=== PATIENT | male | born 1975 | race African-American/Black ===

== ENCOUNTER 2018-10-18 10:06 | Inpatient (IN) | payer OTHER ==
[~2018-10-18] VITALS: Ht 180.3 cm; Wt 83.5 kg
[2018-10-18] MEDS ORDERED: LORAZEPAM INJ 2 MG/ML VIAL ONE (10:17)
--- NOTE | 2018-10-18 10:20 | NUR ---
SARAHI FROM SNF, REPORTED SEIZURE. ON TRACHE, COOL AEROSOL. NO DISTRESS NOTED. PLACED ON THE MONITOR, SEIZURE PRECAUTION OBSERVED. WILL MONITOR.
[2018-10-18] MEDS ORDERED: LORAZEPAM INJ 2 MG/ML VIAL IV ONE (10:30)
--- NOTE | 2018-10-18 10:43 | NUR ---
RT PATIENT REC'D IN ER VIA PARAMEDICS TRACHED WITH A PORTEX 9 CUFFLESS ON 40% FIO2 VIA TRACH MASK YVETTE WELL. PATIENT HAVING ACTIVE SEIZERS. PER MD MORFIN PATIENT PLACED ON [facility] VENT WITH SETTINGS AC 12, VT 500, 40% FIO2 AND 5 PEEP TOLERATED WELL. VENT ALARMS CHECKED + AUDIBLE. AMBU BAG AT [facility]. Addendum: 10/18/18 at 1044 by REMA SIMEON RT Amended: Links added.
[2018-10-18] MEDS ORDERED: LEVETIRACETAM (500MG) 500 MG in IV NS 0.9% 100 ML IV ONE (11:00)
[2018-10-18 11:28] LABS: BASOPHILS % (AUTO) 0.7 % (0.0-2.0); EOSINOPHILS % (AUTO) 3.2 % (0.0-6.0); HEMATOCRIT 36 % (39-51); HEMOGLOBIN 12.1 g/dL (13.5-17.5); LYMPHOCYTES # (AUTO) 2.3 /CMM (0.8-4.8); MEAN CORPUSCULAR HGB CONC 34 g/dl (31.0-36.0); MEAN CORPUSCULAR VOLUME 88 fL (80-96); MONOCYTES # (AUTO) 0.4 /CMM (0.1-1.30); MONOCYTES % (AUTO) 6.2 % (2.0-12.0); NEUTROPHILS # (AUTO) 4.1 /CMM (1.8-8.9); NEUTROPHILS % (AUTO) 57.9 % (43.0-81.0); PLATELET COUNT (AUTO) 170 /CMM (150-450); RED BLOOD CELL COUNT(AUTO) 4.06 MIL/uL (4.5-6.0)
[2018-10-18 11:30] LABS: CALCIUM, SERUM 9.6 mg/dL (8.5-10.1); CREATININE 1.5 mg/dL (0.6-1.3)
[2018-10-18 11:36] LABS: BILIRUBIN,TOTAL 0.2 mg/dL (0.2-1.0); TOTAL PROTEIN, SERUM 8.2 g/dL (6.4-8.2)
[2018-10-18 11:38] LABS: BILIRUBIN,DIRECT 0.1 mg/dL (0.0-0.2)
--- NOTE | 2018-10-18 11:44 | NUR ---
SISTER: LUX SPARKS [phone] MOTHER: SAMPSON SPARKS [phone]
--- NOTE | 2018-10-18 12:02 | NUR ---
CALL FROM [facility], , FOR CLINICALS
--- NOTE | 2018-10-18 12:18 | NUR ---
ROOM [id number]
[2018-10-18 12:26] LABS: ACETAMINOPHEN < 2 ug/ml (10-30); SALICYLATE < 2.8 mg/dL (2.8-20.0)
[2018-10-18] MEDS ORDERED: BISA10SU61 RC (12:41)
[2018-10-18] MEDS ORDERED: CLON0.2T GT (12:41)
[2018-10-18] MEDS ORDERED: AMLO10TA7 GT (12:41)
[2018-10-18] MEDS ORDERED: LEVE100S2 GT (12:41)
[2018-10-18] MEDS ORDERED: ACET160S GT (12:41)
[2018-10-18] MEDS ORDERED: IPRA0.2S9 IH ×2 (12:41→12:44)
[2018-10-18] MEDS ORDERED: CRAN3875 GT (12:41)
[2018-10-18] MEDS ORDERED: EPOE1VIA6 SQ (12:41)
[2018-10-18] MEDS ORDERED: ALBU2.5V38 IH ×2 (12:41)
[2018-10-18] MEDS ORDERED: DOCU50LI GT (12:41)
[2018-10-18] MEDS ORDERED: FOLI0.8T2 GT (12:41)
[2018-10-18] MEDS ORDERED: ACET160L33 GT (12:41)
[2018-10-18] MEDS ORDERED: LISI40TA4 GT (12:41)
[2018-10-18] MEDS ORDERED: NA P133E RC (12:41)
[2018-10-18] MEDS ORDERED: PROP40TA7 GT (12:41)
[2018-10-18] MEDS ORDERED: MAGN400O6 GT (12:41)
[2018-10-18 12:55] LABS: THYROID STIMULATING HORMONE 1.723 uIU/mL (0.358-3.74)
[2018-10-18 12:57] LABS: ALBUMIN 3.5 g/dL (3.4-5.0)
--- NOTE | 2018-10-18 13:46 | NUR ---
PAGED DR BAUGH
--- NOTE | 2018-10-18 14:13 | NUR ---
REPORT GIVEN TO AISHWARYA PANTOJA. DR. GUZMAN AWARE OF ADMISSION.
[2018-10-18] MEDS ORDERED: IV NS 0.9% 1,000 ML BAG IV ONE (14:30)
[2018-10-18] MEDS ORDERED: CLINDAMYCIN 900 MG in IV D5W 50 ML IV ONE (14:30)
--- NOTE | 2018-10-18 15:30 | NUR ---
PATIENT TRANSFERRED TO TELE BED 319 FOR ANAND. CARE TRANSFERED TO SCARLETT NEFF. VSS.
--- NOTE | 2018-10-18 15:47 | NUR ---
RT PATIENT TRANSPORTED TO 3RD FLOOR. PER DIEGO LOWE TRACHED REPLACED WITH A PORTEX 6 CUFFED YVETTE WELL. VENT ALARMS CHECKED + AUDIBLE. REPORT GIVEN TO RT RAFA. Addendum: 10/18/18 at 1548 by REMA SIMEON RT Amended: Links added.
[2018-10-18 16:00] VITALS: BP 151/95
--- NOTE | 2018-10-18 16:00 | NUR ---
CRIME SCENE PHOTOGRAPHER NOTES RECEIVED PT FROM E.R. STAFF VIA [facility] WITH RT, PT IS AWAKE ALERT, ASSISTED TO BED, MADE COMFORTABLE, ROOM SET UP ORIENTATION PROVIDED TO PT, NODS HEAD, DENIES PAIN, NOT IN DISTRESS, ON VENT/TRACH, VITAL SIGNS TAKEN AND RECORDED, SKIN CHECK DONE, AWAITING ADMITTING ORDERS FROM DR. GUZMAN.
[2018-10-18] MEDS ORDERED: MAGNESIUM HYDROXIDE 30 ML UDC PO PRN (16:30)
[2018-10-18] MEDS ORDERED: ACETAMINOPHEN 160 MG/5 ML GT PRN (16:30)
[2018-10-18] MEDS ORDERED: MAGNESIUM HYDROXIDE 30 ML UDC GT PRN (16:30)
[2018-10-18] MEDS ORDERED: BISACODYL SUPP (10 MG) 10 MG/SUPP.RECT SUPP.RECT RC PRN (16:30)
[2018-10-18] MEDS ORDERED: HYDROCODONE/APAP 5/325MG 1 EACH TABLET PO PRN (16:30)
[2018-10-18] MEDS ORDERED: CLINDAMYCIN IV RTU IN D5W 900 MG/50 ML PIGGYBACK IV SCH (16:30)
[2018-10-18] MEDS ORDERED: ACETAMINOPHEN 325 MG TABLET PO PRN (16:30)
[2018-10-18] MEDS ORDERED: Medication Not On Formulary EA (Acetaminophen 20 ML) GT PRN (16:30)
[2018-10-18] MEDS ORDERED: Z GUARD REMEDY 2 OZ OINT TP PRN (16:30)
[2018-10-18] MEDS ORDERED: IPRATROPIUM NEB FS 0.5 MG/2.5 ML AMPUL.NEB IH PRN (16:30)
[2018-10-18] MEDS ORDERED: ZOLPIDEM TARTRATE 5 MG TABLET PO PRN (16:30)
[2018-10-18] MEDS ORDERED: ONDANSETRON HCL/PF 4 MG/2 ML VIAL IVP PRN (16:30)
[2018-10-18] MEDS ORDERED: NA PHOS,M-B/NA PHOS,DI-BA 1 EA ENEMA RC PRN (16:30)
[2018-10-18] MEDS ORDERED: LORAZEPAM INJ 2 MG/ML VIAL IV PRN (16:30)
[2018-10-18] MEDS ORDERED: MAG HYDROX/AL HYDROX/SIMETH 30 ML UDC PO PRN (16:30)
[2018-10-18] MEDS ORDERED: Medication Not On Formulary EA (Cran/Vitc/Mannose/Inulin/Brom (Uti-Stat Liquid) 30 ML) GT SCH (17:00)
--- NOTE | 2018-10-18 18:07 | NUR ---
RT NOTE: RECEIVED PT ON ORDERED AC VENT SETTINGS FROM RT HODGSON. NO RESPIRATORY DISTRESS NOTED. MILD BLOOD FROM SECRETIONS DUE TO MD TELLO CHANGE ORDER. RN AWARE. TRACH CHECKED SECURE AND PATENT. ALARMS ON CHECKED AND AUDIBLE. SXD AND LAVAGED PT NEEDED. Addendum: 10/18/18 at 1808 by RAFA HA RT Amended: Links added.
[2018-10-18] MEDS: CLONIDINE HCL 0.1 MG TABLET GT SCH (18:39)
[2018-10-18] MEDS: IV NS 0.9% 1,000 ML IV SCH (18:40)
--- NOTE | 2018-10-18 19:00 | NUR ---
water softener installer opening notes Received PT from morning nurse. Pt is alert and oriented X3. PT is resting in bed comfortably with eyes open. PT denies any pain or any discomfort at this time. NO SOB. IV sites is intact and infusing well NS 100 ml/hr. PT is in vent. vent setting AC 12, TV 500, Fi02 40%, Peep 5. Seizure precautions is maintained. Bed at low position and call light is within reach. Will continue to monitor.
--- NOTE | 2018-10-18 19:00 | NUR ---
MANAGER ENROLLMENT NOTES PT RESTING COMFORTABLY IN BED, NOT COMPLAINT OF PAIN, IV FLUIDS INFUSING WELL, PT SEEN BY DR. GUZMAN, DUE MEDS GIVEN ORDERED, PM CARE PROVIDED, TURNED AND REPOSITIONED, ALL NEEDS ATTENDED.
[2018-10-18] MEDS: IPRATROPIUM NEB FS 0.5 MG/2.5 ML AMPUL.NEB IH SCH (19:08)
[2018-10-18] MEDS: ALBUTEROL FS 2.5 MG/0.5 ML VIAL.NEB NEB SCH (19:08)
[2018-10-18] MEDS ORDERED: ALBUTEROL FS 2.5 MG/0.5 ML VIAL.NEB NEB PRN (19:30)
[2018-10-18 20:00] VITALS: BP 145/95
[2018-10-18] MEDS: DOCUSATE SODIUM LIQ 100 MG/10 ML UDC GT SCH (21:38)
[2018-10-18] MEDS: PROPRANOLOL HCL 40 MG TABLET GT SCH (21:57)
[2018-10-18] MEDS: CLINDAMYCIN 900 MG in IV D5W 50 ML IV SCH (22:07)
[2018-10-19] VITALS (7 sets, daily range): BP systolic 107–153; BP diastolic 64–95
[2018-10-19] MEDS: IPRATROPIUM NEB FS 0.5 MG/2.5 ML AMPUL.NEB IH SCH ×4 (01:29→19:21)
[2018-10-19] MEDS: ALBUTEROL FS 2.5 MG/0.5 ML VIAL.NEB NEB SCH ×4 (01:29→19:21)
[2018-10-19] MEDS: IV NS 0.9% 1,000 ML IV SCH ×3 (03:56→22:55)
[2018-10-19] MEDS: CLINDAMYCIN 900 MG in IV D5W 50 ML IV SCH ×3 (05:01→21:48)
[2018-10-19] MEDS: PROPRANOLOL HCL 40 MG TABLET GT SCH ×3 (05:02→21:47)
--- NOTE | 2018-10-19 05:02 | NUR ---
PATIENT RECEIVED ON TRACH TO VENT WITH SETTINGS OF AC 12, 500 VT, 40%, +5 WITH A PORTEX 6 TRACH TUBE. SUCTIONED FOR MINIMAL, THIN, YELLOW SECRETIONS. GIVEN IN-LINE TREATMENTS WITH NO ADVERSE REACTIONS. AMBU BAG AT BEDSIDE. VENT AND PULSE OXIMETER ALARMS AUDIBLE AND VISIBLE. VENT PLUGGED INTO RED OUTLET. Addendum: 10/19/18 at 0504 by AVA HALL RT Amended: Links added.
[2018-10-19 07:04] LABS: BASOPHILS % (AUTO) 0.5 % (0.0-2.0); EOSINOPHILS % (AUTO) 3.5 % (0.0-6.0); HEMATOCRIT 32 % (39-51); HEMOGLOBIN 10.8 g/dL (13.5-17.5); LYMPHOCYTES # (AUTO) 2.6 /CMM (0.8-4.8); LYMPHOCYTES % (AUTO) 34.4 % (20.0-44.0); MEAN CORPUSCULAR HGB CONC 34 g/dl (31.0-36.0); MEAN CORPUSCULAR VOLUME 87 fL (80-96); MONOCYTES # (AUTO) 0.6 /CMM (0.1-1.30); MONOCYTES % (AUTO) 8.2 % (2.0-12.0); NEUTROPHILS # (AUTO) 4.1 /CMM (1.8-8.9); NEUTROPHILS % (AUTO) 53.4 % (43.0-81.0); PLATELET COUNT (AUTO) 192 /CMM (150-450); RED BLOOD CELL COUNT(AUTO) 3.64 MIL/uL (4.5-6.0); WHITE BLOOD COUNT (AUTO) 7.6 K/uL (4.3-11.0)
--- NOTE | 2018-10-19 07:11 | NUR ---
fleet director closing notes PT is alert and oriented X2. PT is resting in bed comfortably with eyes closed. PT is on security monitor-SR. PT is on trach vent with same settings. IV is intact, patent and infusing well NS 100 ml/hr. Routine meds have been given and assisted all needs. PT is in tube feeding Nephro @ 55ml/hr. SKin care provided and z-guard and mepilex is applied. Seizure precautions is maintained. Bed at low position, side bed rails x3 up and padded, call light is within reach. Will endorse to morning nurse for ANAND.
[2018-10-19 07:34] LABS: CALCIUM, SERUM 8.9 mg/dL (8.5-10.1); CREATININE 1.3 mg/dL (0.6-1.3); MAGNESIUM 1.9 mg/dL (1.8-2.4); PHOSPHORUS 3.9 mg/dL (2.5-4.9); POTASSIUM 3.5 mmol/L (3.5-5.1)
--- NOTE | 2018-10-19 07:36 | NUR ---
RICKSHAW DRIVER OPENING NOTES RECEIVED PT SITTING UP IN BED RESTING COMFORTABLY. PT IS EASILY AROUSABLE, AFEBRILE. RESPIRATIONS ARE EVEN AND UNLABORED, NOT IN ANY ACUTE DISTRESS NOTED. NO FACIAL GRIMACING OR MOANING NOTED. GT INTACT, NO RESIDUAL NOTED. CURRENTLY ON NEPHRO @55ML/HR. HOB KEPT ELEVATED. IV SITE TO RIGHT HAND INTACT, NO INFILTRATION NOTED. DRESSING KEPT CLEAN AND DRY. CURRENTLY ON VENT, TOLERATING VENT SETTINGS WELL, SATURATING AT 100%. WILL REPOSITION PER PROTOCOL. CALL LIGHT IS LEFT WITHIN REACH. WILL CONTINUE TO MONITOR THROUGHOUT SHIFT FOR CONTINUITY OF CARE.
--- NOTE | 2018-10-19 08:30 | NUR ---
DENTAL LABORATORY TECHNICIAN NOTES-- PT WAS SEEN AND EXAMINED BY DR. GUZMAN.
--- NOTE | 2018-10-19 08:48 | NUR ---
RT NOTE PT REC'D TRACHED ON [facility] VENT ON ORDERED SETTINGS, NO SOB NOTED AT THIS TIME, TRACH TUBE PATENT AND SECURE, VENT ALARMS ON AND AUDIBLE, BVM BY BEDSIDE, VENT PLUGGED IN RED OUTLET, PT SX WITH SMALL AMOUNT OF THICK PALE-YELLOW SECRETIONS, WILL CONTINUE TO MONITOR. Addendum: 10/19/18 at 0849 by ISAEL LOUIS RT Amended: Links added.
[2018-10-19] MEDS: LEVETIRACETAM SOL (5 ML) 100 MG/ML UDC GT SCH (09:28)
[2018-10-19] MEDS: VIT B CMPLX 3/FA/VIT C/BIOTIN 1 TAB TABLET GT SCH (09:28)
[2018-10-19] MEDS: AMLODIPINE BESYLATE 10 MG TABLET GT SCH (09:28)
[2018-10-19] MEDS: DOCUSATE SODIUM LIQ 100 MG/10 ML UDC GT SCH ×2 (09:28→21:47)
[2018-10-19] MEDS: LISINOPRIL (20MG) 20 MG TABLET GT SCH (09:29)
[2018-10-19] MEDS: CLONIDINE HCL 0.1 MG TABLET GT SCH ×2 (09:29→16:20)
--- NOTE | 2018-10-19 13:31 | NUR ---
ROAD ROLLER OPERATOR HOT MIX NOTES-- PT ABLE TO MAKE NEEDS KNOWN. NEEDS MET AND RENDERED. TOLERATING VENT SETTINGS WELL. NOT IN ANY APPARENT DISTRESS. WILL CONTINUE TO MONITOR.
[2018-10-19] MEDS: NEPRO 1,000 ML BOTTLE GT PRN (15:24)
[2018-10-19] MEDS: Z GUARD REMEDY 4 OZ OINT TP SCH ×2 (16:38→21:48)
--- NOTE | 2018-10-19 18:23 | NUR ---
CASSEROLE PREPARER CLOSING NOTES ALL DUE MEDS GIVEN, NEEDS MET AND RENDERED. PT IS A/O X2-3, AFEBRILE. RESPIRATIONS ARE EVEN AND UNLABORED, NOT IN ANY ACUTE DISTRESS NOTED. PT TOLERATING VENT SETTINGS WELL. NO C/O SOB, N/V. IV SITE TO RFA INTACT, NO INFILTRATION NOTED. DRESSING KEPT CLEAN AND DRY. PT REPOSITIONED Q2H.CLOTILDE MATTRESS PLACED. SAFETY MEASURES ARE IN PLACE. REMINDED PT TO USE CALL LIGHT WHEN ASSISTANCE IS NEEDED, CALL LIGHT IS LEFT WITHIN REACH. WILL ENDORSE TO NEXT SHIFT FOR CONTINUITY OF CARE.
--- NOTE | 2018-10-19 19:12 | NUR ---
Patient is chronic trach/vent dependent, resides at [facility] [phone].He is bedfast and requires total assist with adl's.Current dc plan is to dc back to [facility] when stable. Addendum: 10/19/18 at 1911 by JESSICA WHALEY RN Amended: Links added.
--- NOTE | 2018-10-19 19:30 | NUR ---
quality assurance monitor final opening notes Received Pt form morning nurse. PT is alert oriented X2. PT is laying in bed comfortably with eyes open. No c/o pain or any discomfort. PT is on tele monitor - SR and Sinus tachy 90-115 bpm. VS is stable. PT is on [facility] vent. Portex 6, AC 12, TV 500, F1O2 90% AND PEEP 5. IV sites is intact, patent and infusing well at NS 100ml/hr. GT is intact, 0 residual and currently on Nephro @55 ml/hr. Seizure precautions is maintained. Bed at low position, bed side rails up X3 and padded, call light is within reach. Will continue to monitor and assists all needs.
--- NOTE | 2018-10-19 20:00 | NUR ---
brim greaser operator notes Administered PRN med Lorezepam 2mg/ml vial IV push to PT. PT's agitated and look restless. PT stated "Get me out of here." Helped the Pt by reassuring, comforting, repositioning and listening. Will continue to monitor the PT. Seizure precautions is maintained.
--- NOTE | 2018-10-19 20:50 | NUR ---
trade union secretary notes PT is resting in bed comfortably. No sign of agitation. PT looks relax and calm. BP 140/75, pulse 78, Respiration 14, O2 sat 100%, Temp 98.1 F. Reassured the PT. PT verbalize understanding. Will continue to monitor.
[2018-10-20] VITALS: BP 124/77
--- NOTE | 2018-10-20 | NUR ---
senior linux systems engineer notes PT is resting in bed comfortably with eyes closed. Arouse easily. No complains of pain or any discomfort at this time. BP 124/77, Pulse 59, Respiration 16, Temp 98.4 F, O2 sat 100%. Seizure precautions is maintained. Will continue to monitor.
[2018-10-20] MEDS: IPRATROPIUM NEB FS 0.5 MG/2.5 ML AMPUL.NEB IH SCH ×4 (00:57→19:33)
[2018-10-20] MEDS: ALBUTEROL FS 2.5 MG/0.5 ML VIAL.NEB NEB SCH ×4 (00:57→19:33)
[2018-10-20 04:00] VITALS: BP 129/88
[2018-10-20] MEDS: PROPRANOLOL HCL 40 MG TABLET GT SCH ×3 (05:04→21:15)
[2018-10-20] MEDS: CLINDAMYCIN 900 MG in IV D5W 50 ML IV SCH ×3 (05:05→21:18)
[2018-10-20 06:45] LABS: BASOPHILS % (AUTO) 0.5 % (0.0-2.0); EOSINOPHILS % (AUTO) 4.1 % (0.0-6.0); HEMATOCRIT 29 % (39-51); LYMPHOCYTES # (AUTO) 2.2 /CMM (0.8-4.8); LYMPHOCYTES % (AUTO) 35.3 % (20.0-44.0); MEAN CORPUSCULAR HGB CONC 35 g/dl (31.0-36.0); MEAN CORPUSCULAR VOLUME 87 fL (80-96); MONOCYTES # (AUTO) 0.5 /CMM (0.1-1.30); MONOCYTES % (AUTO) 8.2 % (2.0-12.0); NEUTROPHILS # (AUTO) 3.3 /CMM (1.8-8.9); NEUTROPHILS % (AUTO) 51.9 % (43.0-81.0); PLATELET COUNT (AUTO) 174 /CMM (150-450); RED BLOOD CELL COUNT(AUTO) 3.35 MIL/uL (4.5-6.0); WHITE BLOOD COUNT (AUTO) 6.3 K/uL (4.3-11.0)
[2018-10-20 06:59] LABS: CALCIUM, SERUM 8.9 mg/dL (8.5-10.1); CREATININE 1.4 mg/dL (0.6-1.3); POTASSIUM 3.5 mmol/L (3.5-5.1)
--- NOTE | 2018-10-20 07:15 | NUR ---
stripping cutter and winder closing notes PT is alert and oriented X2. PT is resting in bed comfortably with eyes closed. PT is on monitoring and evaluation advisor-SR. PT is on trach vent with same settings. IV is intact, patent and infusing well NS 100 ml/hr. Routine meds have been given and assisted all needs. PT is in tube feeding Nephro @ 55ml/hr. SKin care provided and z-guard and mepilex is applied. Seizure precautions is maintained. Bed at low position, side bed rails x3 up and padded, call light is within reach. Will endorse to morning nurse for ANAND.
--- NOTE | 2018-10-20 07:42 | NUR ---
PET TECHNOLOGIST OPENING NOTES RECEIVED PT SITTING UP IN BED RESTING COMFORTABLY. PT IS EASILY AROUSABLE, AFEBRILE. RESPIRATIONS ARE EVEN AND UNLABORED, NOT IN ANY ACUTE DISTRESS NOTED. NO FACIAL GRIMACING OR MOANING NOTED. GT INTACT, NO RESIDUAL NOTED. CURRENTLY ON NEPHRO @55ML/HR. HOB KEPT ELEVATED. IV SITE TO RIGHT ARM INTACT, NO INFILTRATION NOTED. DRESSING KEPT CLEAN AND DRY. CURRENTLY ON VENT, TOLERATING VENT SETTINGS WELL, SATURATING AT 100%. WILL REPOSITION PER PROTOCOL. CALL LIGHT IS LEFT WITHIN REACH. WILL CONTINUE TO MONITOR THROUGHOUT SHIFT FOR CONTINUITY OF CARE.
[2018-10-20 08:00] VITALS: BP 136/92
[2018-10-20 08:06] VITALS: BP 136/92
[2018-10-20] MEDS: VIT B CMPLX 3/FA/VIT C/BIOTIN 1 TAB TABLET GT SCH (08:36)
[2018-10-20] MEDS: LISINOPRIL (20MG) 20 MG TABLET GT SCH (08:36)
[2018-10-20] MEDS: DOCUSATE SODIUM LIQ 100 MG/10 ML UDC GT SCH ×2 (08:36→21:14)
[2018-10-20] MEDS: LEVETIRACETAM SOL (5 ML) 100 MG/ML UDC GT SCH (08:36)
[2018-10-20] MEDS: AMLODIPINE BESYLATE 10 MG TABLET GT SCH (08:36)
[2018-10-20] MEDS: CLONIDINE HCL 0.1 MG TABLET GT SCH ×2 (08:36→16:35)
[2018-10-20] MEDS: Z GUARD REMEDY 4 OZ OINT TP SCH ×2 (08:37→21:15)
[2018-10-20] MEDS: IV NS 0.9% 1,000 ML IV SCH ×2 (10:30→19:18)
[2018-10-20] MEDS: NEPRO 1,000 ML BOTTLE GT PRN (10:30)
--- NOTE | 2018-10-20 10:41 | NUR ---
WOUND CARE CONSULT WOUND CARE RECEIVED CONSULT FOR LOW ANDREEA. WOUND CARE WILL DEFER CONSULT TO PLASTIC SURGICAL TEAM WHO ARE CURRENTLY FOLLOWING THIS PATIENT. PATIENT WITH ANDREEA AT 12, ALL PRESSURE ULCER PREVENTION MEASURES ARE NOTED TO BE IN PLACE AT THIS TIME. WILL SEE PRN.
--- NOTE | 2018-10-20 13:37 | NUR ---
MS RN NOTES-- PT REPOSITIONED Q2H. ABLE TO MAKE NEEDS KNOWN. NEEDS MET AND RENDERED. WILL CONTINUE TO MONITOR.
[2018-10-20 16:24] VITALS: BP 136/88
--- NOTE | 2018-10-20 17:29 | NUR ---
MS RN NOTES-- PT PULLED OUT CONDOM CATH. APPLIED NEW CONDOM CATH ON WITH STABILITY. PT KEPT CLEAN AND DRY. REPOSITIONED Q2H. WILL CONTINUE TO MONITOR.
--- NOTE | 2018-10-20 18:28 | NUR ---
SURGERY AIDE CLOSING NOTES ALL DUE MEDS GIVEN, NEEDS MET AND RENDERED. PT IS A/O X2, AFEBRILE. RESPIRATIONS ARE EVEN AND UNLABORED, NOT IN ANY ACUTE DISTRESS NOTED. PT TOLERATING VENT SETTINGS WELL. NO C/O SOB, N/V. IV SITE TO RFA, R HAND INTACT, NO INFILTRATION NOTED. DRESSING KEPT CLEAN AND DRY. PT REPOSITIONED Q2H. CONDOM INTACT, TUBING FREE OF KINKS AND DRAINING WELL W/ YELLOW URINE. SAFETY MEASURES ARE IN PLACE. REMINDED PT TO USE CALL LIGHT WHEN ASSISTANCE IS NEEDED, CALL LIGHT IS LEFT WITHIN REACH. WILL ENDORSE TO NEXT SHIFT FOR CONTINUITY OF CARE.
[2018-10-20 20:00] VITALS: BP 180/106
--- NOTE | 2018-10-20 20:37 | NUR ---
TELE/RN ON INITIAL ROUND AT 1930, FOUND PATIENT AWAKE, ALERT, WITH TRACH CONNECTED TO MECHANICAL VENTILATOR, ABLE TO MOUTHWORD NEEDS, NO C/O PAIN, NO DISTRESS NOTED, GT FEEDING INFUSING, HOB ELEVATED, CALL LIGHT IN REACH. WILL MONITOR.
--- NOTE | 2018-10-20 23:52 | NUR ---
INFORMATION SENT: FACESHEET , ADMIT ORDER , 24 HOURS REPORTS , CONSULTATIONS , ER , H&P , PROGRESS NOTES 10/19- , UR 10/19 INSURANCE NAME: [facility] FAX NUMBER: [phone] FAX SENT BY ASHLEY MEZA
[2018-10-21] VITALS: BP 158/106
[2018-10-21] MEDS: IPRATROPIUM NEB FS 0.5 MG/2.5 ML AMPUL.NEB IH SCH ×4 (00:58→19:21)
[2018-10-21] MEDS: ALBUTEROL FS 2.5 MG/0.5 ML VIAL.NEB NEB SCH ×4 (00:58→19:21)
--- NOTE | 2018-10-21 02:59 | NUR ---
RT Pt lana remains on [facility] vent settings. no weaning or changes made. sx prn. trach secure and patent. Addendum: 10/21/18 at 0300 by MIKEY SMITH RT Amended: Links added.
[2018-10-21 04:00] VITALS: BP 134/105
[2018-10-21] MEDS: NEPRO 1,000 ML BOTTLE GT PRN (04:06)
[2018-10-21] MEDS: IV NS 0.9% 1,000 ML IV SCH ×2 (04:07→15:12)
[2018-10-21] MEDS: CLINDAMYCIN 900 MG in IV D5W 50 ML IV SCH ×3 (05:49→21:21)
[2018-10-21] MEDS: PROPRANOLOL HCL 40 MG TABLET GT SCH ×3 (05:49→21:20)
--- NOTE | 2018-10-21 06:04 | NUR ---
TELE/RN PATIENT IS AWAKE, COMFORTABLE, NO C/O PAIN, NO DISTRESS NOTED, HOB ELEVATED, IVF/GT FEEDING INFUSING, NO RESIDUAL NOTED, HAD AN ON AND OFF SLEEP THE WHOLE SHIFT, ALL NEEDS ATTENDED AT THIS TIME, WILL CONTINUE TO MONITOR.
[2018-10-21 07:14] LABS: BASOPHILS # (AUTO) 0.1 /CMM (0.0-0.2); BASOPHILS % (AUTO) 0.6 % (0.0-2.0); EOSINOPHILS % (AUTO) 3.1 % (0.0-6.0); HEMATOCRIT 31 % (39-51); HEMOGLOBIN 10.8 g/dL (13.5-17.5); LYMPHOCYTES # (AUTO) 2.8 /CMM (0.8-4.8); LYMPHOCYTES % (AUTO) 30.9 % (20.0-44.0); MEAN CORPUSCULAR HGB CONC 35 g/dl (31.0-36.0); MEAN CORPUSCULAR VOLUME 86 fL (80-96); MONOCYTES # (AUTO) 0.8 /CMM (0.1-1.30); MONOCYTES % (AUTO) 8.6 % (2.0-12.0); NEUTROPHILS # (AUTO) 5.2 /CMM (1.8-8.9); NEUTROPHILS % (AUTO) 56.8 % (43.0-81.0); PLATELET COUNT (AUTO) 182 /CMM (150-450); RED BLOOD CELL COUNT(AUTO) 3.64 MIL/uL (4.5-6.0); WHITE BLOOD COUNT (AUTO) 9.1 K/uL (4.3-11.0)
[2018-10-21 07:21] LABS: CALCIUM, SERUM 9.6 mg/dL (8.5-10.1); CREATININE 1.3 mg/dL (0.6-1.3); POTASSIUM 3.4 mmol/L (3.5-5.1)
--- NOTE | 2018-10-21 07:45 | NUR ---
STRAND GALVANIZER OPENING NOTES RECEIVED PATIENT ON BED, ALERT O X 2-3 AND ABLE TO MAKE NEEDS KNOWN. ON VENT SETTING. ASSESSED NO PRESENCE OF ACUTE RESPIRATORY DISTRESS. ABDOMEN SOFT AND NON DISTENDED WITH ACTIVE BOWEL SOUNDS, CONDOM CATH IN PLACE. SKIN WARM TO TOUCH AND DRY. DENIES PAIN AND DISCOMFORT. IV SITE AT RIGHT FA GAUGE 24, PATENT IN FLUSHING. ON SINUS RHYTHM 82 PER TELE MONITOR. ALL CONCERNS ADDRESSED. PLACED CALL LIGHT WITHIN REACH FOR SAFETY. WILL CONTINUE TO EVALUATE CARE.
[2018-10-21 08:00] VITALS: BP 158/107
--- NOTE | 2018-10-21 08:40 | NUR ---
GENERAL FOUNDRY WORKER NOTES RECEIVED ORDER OF BACTROBAN OINTMENT Q12 PER DR. GUZMAN. READ BACK ORDER, NOTED AND CARRIED OUT. PATIENT NOTIFIED
[2018-10-21] MEDS: DOCUSATE SODIUM LIQ 100 MG/10 ML UDC GT SCH ×2 (09:24→21:20)
[2018-10-21] MEDS: CLONIDINE HCL 0.1 MG TABLET GT SCH ×2 (09:24→17:04)
[2018-10-21] MEDS: LEVETIRACETAM SOL (5 ML) 100 MG/ML UDC GT SCH (09:24)
[2018-10-21] MEDS: AMLODIPINE BESYLATE 10 MG TABLET GT SCH (09:24)
[2018-10-21] MEDS: VIT B CMPLX 3/FA/VIT C/BIOTIN 1 TAB TABLET GT SCH (09:25)
[2018-10-21] MEDS: LISINOPRIL (20MG) 20 MG TABLET GT SCH (09:25)
[2018-10-21] MEDS: Z GUARD REMEDY 4 OZ OINT TP SCH ×2 (09:29→21:22)
[2018-10-21] MEDS: MUPIROCIN OINT 2% 22 GM TUBE SCH ×2 (09:48→21:21)
[2018-10-21] MEDS: POTASSIUM CL. PREMIX PERIPHER. 50 ML IV SCH ×2 (10:02→11:22)
[2018-10-21 16:00] VITALS: BP 136/89
--- NOTE | 2018-10-21 19:10 | NUR ---
MOLASSES PREPARER CLOSING NOTES PATIENT ALERT O X 3 AND ABLE TO MAKE NEEDS KNOWN. ON VENT SETTING. RESPIRATION EVEN AND NON LABORED WITH NO ACUTE RESPIRATORY DISTRESS. ABDOMEN SOFT AND NON DISTENDED WITH ACTIVE BOWEL SOUNDS, DIAPER IN PLACE. SKIN WARM TO TOUCH AND DRY. DENIES PAIN AND DISCOMFORT. IV SITES PATENT IN FLUSHING WITH NO S/SX OF INFILTRATION, NS RUNNING AT 100 ML/HR. ON SINUS RHYTHM 81 PER TELE MONITOR. ALL CONCERNS ADDRESSED. PLACED CALL LIGHT WITHIN REACH FOR SAFETY. ENDORSED PATIENT CARE TO NEXT SHIFT.
[2018-10-21 20:00] VITALS: BP 135/91
[2018-10-22] VITALS: BP 139/84
[2018-10-22] MEDS: IV NS 0.9% 1,000 ML IV SCH ×3 (01:05→22:01)
[2018-10-22] MEDS: IPRATROPIUM NEB FS 0.5 MG/2.5 ML AMPUL.NEB IH SCH ×4 (01:20→18:57)
[2018-10-22] MEDS: ALBUTEROL FS 2.5 MG/0.5 ML VIAL.NEB NEB SCH ×4 (01:20→18:57)
[2018-10-22 04:00] VITALS: BP 152/94
[2018-10-22] MEDS: PROPRANOLOL HCL 40 MG TABLET GT SCH ×3 (05:42→21:58)
[2018-10-22] MEDS: CLINDAMYCIN 900 MG in IV D5W 50 ML IV SCH ×3 (05:42→21:58)
[2018-10-22] MEDS: NEPRO 1,000 ML BOTTLE GT PRN (06:14)
[2018-10-22 06:20] LABS: BASOPHILS % (AUTO) 0.6 % (0.0-2.0); EOSINOPHILS % (AUTO) 2.7 % (0.0-6.0); HEMATOCRIT 31 % (39-51); HEMOGLOBIN 10.6 g/dL (13.5-17.5); LYMPHOCYTES # (AUTO) 2.6 /CMM (0.8-4.8); LYMPHOCYTES % (AUTO) 37.8 % (20.0-44.0); MEAN CORPUSCULAR HGB CONC 34 g/dl (31.0-36.0); MEAN CORPUSCULAR VOLUME 87 fL (80-96); MONOCYTES # (AUTO) 0.6 /CMM (0.1-1.30); MONOCYTES % (AUTO) 8.6 % (2.0-12.0); NEUTROPHILS # (AUTO) 3.4 /CMM (1.8-8.9); NEUTROPHILS % (AUTO) 50.3 % (43.0-81.0); PLATELET COUNT (AUTO) 174 /CMM (150-450); RED BLOOD CELL COUNT(AUTO) 3.61 MIL/uL (4.5-6.0); WHITE BLOOD COUNT (AUTO) 6.8 K/uL (4.3-11.0)
[2018-10-22 06:25] LABS: CALCIUM, SERUM 8.9 mg/dL (8.5-10.1); CREATININE 1.3 mg/dL (0.6-1.3); POTASSIUM 3.9 mmol/L (3.5-5.1)
--- NOTE | 2018-10-22 06:30 | NUR ---
SOFTWARE DEVELOPER CONSULTANT NOTES AWAKE & ALERT. MOUTHS WORDS. WITH SAME VENT SETTINGS. NOT IN ANY DISTRESS. NO SOB NOTED. DENIES ANY PAIN OR DISCOMFORT AT THIS TIME. WITH IVF & GTF INFUSING WELL. AM CARE DONE. MONITORED ACCORDINGLY. CALL LIGHT WITHIN REACH. BED IN LOWEST POSITION. SR UP X 3 WITH BED ALARM ON FOR SAFETY. WILL ENDORSE TO NEXT SHIFT.
--- NOTE | 2018-10-22 07:30 | NUR ---
IGNITER ASSEMBLER OPENING NOTES RECEIVED PT IN BED, ASLEEP EASILY AROUSED, PT CAN MOUTHS WORDS. ON VENT, WITH PORTEX 6, AC 12, TV500, FIO2 40%, PEEP 5, PT TOLERATING WELL. PT DENIES PAIN. PT ALSO DENIES QUESTIONS AND CONCERNS AT THIS MOMENT. PT ON ANGEL GT FEEDING OF NEPHRO AT 55ML/HR, NO RESIDUALS NOTED. IVF NS AT 100ML/HR TO JOSE G20, INTACT AND FLUID INFUSING WELL. PT KEPT COMFORTABLE. HOB ELEVATED. PT'S BED IN LOWEST, LOCKED POSITION WITH SR X3. WILL CONTINUE PLAN OF CARE.
--- NOTE | 2018-10-22 07:33 | NUR ---
SLOT TAG INSERTER NOTES RECEIVED PT ON TELEMONITORING WITH SINUS SHELBIE, HR OF57.
[2018-10-22 08:00] VITALS: BP 168/90
[2018-10-22] MEDS: DOCUSATE SODIUM LIQ 100 MG/10 ML UDC GT SCH ×2 (08:20→21:58)
[2018-10-22] MEDS: VIT B CMPLX 3/FA/VIT C/BIOTIN 1 TAB TABLET GT SCH (08:20)
[2018-10-22] MEDS: CLONIDINE HCL 0.1 MG TABLET GT SCH ×2 (08:20→16:44)
[2018-10-22] MEDS: LEVETIRACETAM SOL (5 ML) 100 MG/ML UDC GT SCH (08:20)
[2018-10-22] MEDS: LISINOPRIL (20MG) 20 MG TABLET GT SCH (08:21)
[2018-10-22] MEDS: AMLODIPINE BESYLATE 10 MG TABLET GT SCH (08:21)
[2018-10-22] MEDS: MUPIROCIN OINT 2% 22 GM TUBE SCH ×2 (08:23→22:01)
[2018-10-22] MEDS: Z GUARD REMEDY 4 OZ OINT TP SCH ×2 (08:23→22:00)
[2018-10-22 12:00] VITALS: BP 152/85
[2018-10-22 16:00] VITALS: BP 142/81
--- NOTE | 2018-10-22 18:43 | NUR ---
DRILLER MACHINE CLOSING NOTES PT REMAINS IN BED, AWAKE, PT CAN MOUTHS WORDS. ON VENT SAME SETTING; WITH PORTEX 6, AC 12, TV500, FIO2 40%, PEEP 5, PT TOLERATING WELL. PT DENIES PAIN. ON TELEMONITORING WITH SR, HR OF 63. PT ON GOING GT FEEDING OF NEPHRO AT 55ML/HR, NO RESIDUALS NOTED. IVF NS AT 100ML/HR TO RAC G20, INTACT AND FLUID INFUSING WELL. ALL NEEDS AND CARE PROVIDED. PT REPOSITIONED Q2H. PT KEPT COMFORTABLE. HOB ELEVATED. PT'S BED IN LOWEST, LOCKED POSITION WITH SR X3. WILL ENDORSE TO INCOMING NIGHT NURSE FOR ANAND.
--- NOTE | 2018-10-22 19:57 | NUR ---
USER EXPERIENCE DESIGNER NOTES RECEIVED PATIENT AWAKE IN BED WITH NO DISTRESS NOTED. CALL LIGHT WITHIN REACH. TRACH INTACT AND PATENT WITH VENT SETTINGS SAME ORDERED. GTF RUNNING AND TOLERATING WELL. PERIPHERAL LINE INTACT AND PATENT. BED IN LOW LOCK SETTING. ROOM FREE OF CLUTTER AND BELONGINGS KEPT NEAR BEDSIDE. WILL CONTINUE TO MONITOR.
[2018-10-22 19:59] VITALS: BP 146/91
[2018-10-23 00:11] VITALS: BP 129/78
[2018-10-23] MEDS: IPRATROPIUM NEB FS 0.5 MG/2.5 ML AMPUL.NEB IH SCH ×4 (01:28→19:33)
[2018-10-23] MEDS: ALBUTEROL FS 2.5 MG/0.5 ML VIAL.NEB NEB SCH ×4 (01:28→19:33)
[2018-10-23 04:35] VITALS: BP 152/108
[2018-10-23] MEDS: CLINDAMYCIN 900 MG in IV D5W 50 ML IV SCH ×3 (04:37→21:24)
[2018-10-23] MEDS: PROPRANOLOL HCL 40 MG TABLET GT SCH ×3 (04:37→21:23)
--- NOTE | 2018-10-23 05:28 | NUR ---
PATIENT RECEIVED ON TRACH TO VENT WITH A PORTEX 6 TUBE AND SETTINGS OF AC 12, 500 VT, 40%, +5. SUCTIONED FOR MINIMAL, THIN, YELLOW SECRETIONS. GIVEN IN-LINE TREATMENTS WITH NO ADVERSE REACTIONS. AMBU BAG AT BEDSIDE. VENT AND PULSE OXIMETER ALARMS AUDIBLE AND VISIBLE. VENT PLUGGED INTO RED OUTLET. Addendum: 10/23/18 at 0530 by AVA HALL RT Amended: Links added.
--- NOTE | 2018-10-23 06:51 | NUR ---
BOOKBINDING MACHINE OPERATOR NOTES RECEIVED PATIENT ASLEEP IN BED WITH NO DISTRESS NOTED. CALL LIGHT WITHIN REACH. TRACH INTACT AND PATENT WITH VENT SETTINGS SAME ORDERED. ALL DUE MEDS GIVEN ORDERED WITH NO ASE NOTED. GTF RUNNING AND TOLERATING WELL. PERIPHERAL LINE INTACT AND PATENT. BED IN LOW LOCK SETTING. ROOM FREE OF CLUTTER AND BELONGINGS KEPT NEAR BEDSIDE. WILL ENDORSE TO ONCOMING SHIFT.
[2018-10-23 08:00] VITALS: BP 182/120
--- NOTE | 2018-10-23 08:00 | NUR ---
DEPENDENCY CASE MANAGER OPENING NOTES Received Patient comfortable and watching TV in bed. A/O x 1. VS stable with no acute distress. Breathing even and unlabored on TRACH and VENT. Trach intact and patent with Vent settings as ordered. Denies pain. Tele monitor in place and operational, reading SR with HR-96. GTUBE intact and operational. GTUBE site clean, dry and intact. Residual<5ml. GTUBE feeding Nephro running at 55ml/hr. 20g PIV on RAC clean, dry, intact and flushing well with IVF NS running at 100ml/hr. Safety precautions in place. Bed locked and set to lowest position with side rails x 2 up. All needs rendered at this time. Will continue to monitor.
[2018-10-23] MEDS: DOCUSATE SODIUM LIQ 100 MG/10 ML UDC GT SCH ×2 (09:22→21:22)
[2018-10-23] MEDS: LISINOPRIL (20MG) 20 MG TABLET GT SCH (09:22)
[2018-10-23] MEDS: AMLODIPINE BESYLATE 10 MG TABLET GT SCH (09:22)
[2018-10-23] MEDS: CLONIDINE HCL 0.1 MG TABLET GT SCH ×2 (09:22→17:31)
[2018-10-23] MEDS: LEVETIRACETAM SOL (5 ML) 100 MG/ML UDC GT SCH (09:22)
[2018-10-23] MEDS: VIT B CMPLX 3/FA/VIT C/BIOTIN 1 TAB TABLET GT SCH (09:22)
[2018-10-23] MEDS: MUPIROCIN OINT 2% 22 GM TUBE SCH ×2 (09:23→21:32)
[2018-10-23] MEDS: Z GUARD REMEDY 4 OZ OINT TP SCH ×2 (09:23→21:32)
[2018-10-23] MEDS: IV NS 0.9% 1,000 ML IV SCH ×2 (09:28→17:32)
--- NOTE | 2018-10-23 14:13 | NUR ---
COMMUNITY DEVELOPMENT SPECIALIST NOTES Followed up with Dr. Brooks in regards to Neuro consult and possible discharge at this time. Will continue to monitor.
[2018-10-23 16:00] VITALS: BP 147/98
--- NOTE | 2018-10-23 17:03 | NUR ---
CHANNEL ROUGHER NOTES No reply from Dr. Brooks. 2nd follow up with Dr. Brooks in regards to Neuro consults at this time. Called and left a voice message to follow up consult. Will continue to monitor.
--- NOTE | 2018-10-23 19:33 | NUR ---
CHILD CARE WORKER CLOSING NOTES Patient comfortable and asleep in bed. A/O x 1. VS stable with no acute distress. Breathing even and unlabored on TRACH and VENT. Trach intact and patent with Vent settings as ordered. Denies pain. Tele monitor in place and operational, reading SR with HR-80. GTUBE intact and operational. GTUBE site clean, dry and intact. Residual<5ml. GTUBE feeding Nephro running at 55ml/hr. 20g PIV on RAC clean, dry, intact and flushing well with IVF NS running at 100ml/hr. Safety precautions in place. Bed locked and set to lowest position with side rails x 2 up. All needs rendered at this time. Will endorse plan of care to oncoming shift.
--- NOTE | 2018-10-23 19:48 | NUR ---
RT NOTE PT RECEIVED ON [facility] VENT ON THE FOLLOWING SETTINGS: AC 12, 500. 40%, +5. PT HAS SMALL THIN BLOODY SECRETIONS. RN IS AWARE. NO RESP DISTRESS NOTED. BREATHING TX GIVEN, NO ADVERSE REACTIONS NOTED AT THIS TIME. VENT IS PLUGGED INTO RED OUTLET. ALARMS ARE ON AND AUDIBLE. AMBU BAG IS AT BEDSIDE. WILL CONT TO MONITOR PT. Addendum: 10/23/18 at 1950 by GEOVANNY NOEL RT Amended: Links added.
[2018-10-23 20:00] VITALS: BP 154/98
--- NOTE | 2018-10-23 20:20 | NUR ---
WET MACHINE OPERATOR NOTES PATIENT ASLEEP IN BED WITH NO DISTRESS NOTED. CALL LIGHT WITHIN REACH. TRACH INTACT AND PATENT WITH VENT SETTINGS SAME ORDERED. PATIENT BREATHING EASILY. PERIPHERAL LINE INTACT AND PATENT. GTF RUNNING AT 55ML/HR AND TOLERATING WELL. NO ABDOMINAL DISTENSION NOTED. BED IN LOW LOCK SETTING. BED ALARM ON AND FUNCTIONING PROPERLY. ALL BELONGINGS KEPT NEAR BEDSIDE. WILL CONTINUE TO MONITOR.
[2018-10-23] MEDS: NEPRO 1,000 ML BOTTLE GT PRN ×2 (21:32)
[2018-10-24] VITALS: BP 128/73
[2018-10-24] MEDS: IPRATROPIUM NEB FS 0.5 MG/2.5 ML AMPUL.NEB IH SCH ×3 (01:42→14:43)
[2018-10-24] MEDS: ALBUTEROL FS 2.5 MG/0.5 ML VIAL.NEB NEB SCH ×3 (01:42→14:43)
[2018-10-24] MEDS: IV NS 0.9% 1,000 ML IV SCH ×2 (03:13→13:27)
[2018-10-24 04:00] VITALS: BP 152/93
[2018-10-24] MEDS: CLINDAMYCIN 900 MG in IV D5W 50 ML IV SCH ×2 (05:51→13:45)
[2018-10-24] MEDS: PROPRANOLOL HCL 40 MG TABLET GT SCH ×2 (05:53→13:00)
--- NOTE | 2018-10-24 06:29 | NUR ---
CAREER RESOURCE SPECIALIST NOTES PATIENT AWAKE IN BED WITH NO DISTRESS NOTED. CALL LIGHT WITHIN REACH. PATIENT BREATHING EASILY. TRACH INTACT AND PATENT WITH VENT SETTING SAME ORDERED. NO C/O PAIN OR DISCOMFORT. GTF RUNNING AND TOLERATING WELL. ALL DUE MEDS GIVEN ORDERED WITH NO ASE NOTED. PERIPHERAL LINE INTACT AND PATENT. BED IN LOW LOCK SETTING. ALL BELONGINGS KEPT NEAR BEDSIDE. WILL ENDORSE TO ONCOMING SHIFT.
[2018-10-24 07:19] LABS: BASOPHILS % (AUTO) 0.6 % (0.0-2.0); HEMATOCRIT 29 % (39-51); HEMOGLOBIN 9.9 g/dL (13.5-17.5); LYMPHOCYTES # (AUTO) 2.5 /CMM (0.8-4.8); LYMPHOCYTES % (AUTO) 42.3 % (20.0-44.0); MEAN CORPUSCULAR HGB CONC 34 g/dl (31.0-36.0); MEAN CORPUSCULAR VOLUME 86 fL (80-96); MONOCYTES # (AUTO) 0.5 /CMM (0.1-1.30); MONOCYTES % (AUTO) 7.9 % (2.0-12.0); NEUTROPHILS # (AUTO) 2.8 /CMM (1.8-8.9); NEUTROPHILS % (AUTO) 46.2 % (43.0-81.0); PLATELET COUNT (AUTO) 163 /CMM (150-450); RED BLOOD CELL COUNT(AUTO) 3.38 MIL/uL (4.5-6.0)
[2018-10-24 07:24] LABS: CALCIUM, SERUM 9.3 mg/dL (8.5-10.1); CREATININE 1.4 mg/dL (0.6-1.3); POTASSIUM 3.4 mmol/L (3.5-5.1)
--- NOTE | 2018-10-24 07:58 | NUR ---
MS RN OPENING NOTES PATIENT IS AWAKE IN BED. PATIENT IS ON VENT SETTINGS, TOLERATING WELL. ONGOING GTUBE FEEDINGS. AMBU BAG IS AT BEDSIDE. MAINTAINED ASPIRATION AND ISOLATION PRECAUTIONS. PATIENT IS NO ACUTE DISTRESS. NO SOB NOTED. BED IS LOCKED AND IN LOW POSITION. CALL LIGHT WITHIN REACH. WILL CONTINUE TO MONITOR.
[2018-10-24 08:00] VITALS: BP 159/87
[2018-10-24] MEDS: VIT B CMPLX 3/FA/VIT C/BIOTIN 1 TAB TABLET GT SCH (08:56)
[2018-10-24] MEDS: AMLODIPINE BESYLATE 10 MG TABLET GT SCH (08:57)
[2018-10-24] MEDS: CLONIDINE HCL 0.1 MG TABLET GT SCH (08:57)
[2018-10-24] MEDS: LISINOPRIL (20MG) 20 MG TABLET GT SCH (08:57)
[2018-10-24] MEDS: LEVETIRACETAM SOL (5 ML) 100 MG/ML UDC GT SCH (08:57)
[2018-10-24] MEDS: DOCUSATE SODIUM LIQ 100 MG/10 ML UDC GT SCH (08:57)
[2018-10-24] MEDS: MUPIROCIN OINT 2% 22 GM TUBE SCH (09:00)
[2018-10-24] MEDS: Z GUARD REMEDY 4 OZ OINT TP SCH (09:00)
[2018-10-24] MEDS ORDERED: POTASSIUM CHLORIDE 20 MEQ POWDER PACKET GT SCH (10:00)
[2018-10-24] MEDS ORDERED: MUPI22OI7 (10:18)
[2018-10-24 12:00] VITALS: BP 140/89
[2018-10-24 13:00] VITALS: BP 138/89
--- NOTE | 2018-10-24 14:42 | NUR ---
PRINTER ASSISTANT NOTES GAVE REPORT TO SANJANA PANTOJA, AT [facility]. [facility] CONTACT [phone].
--- NOTE | 2018-10-24 16:19 | NUR ---
ANALYSIS MGRSANITATION INSPECTOR NOTES PATIENT DISCHARGE INSTRUCTIONS PROVIDED. REMOVED IV, PRESSURE DRESSING APPLIED. NO NEW SKIN BREAKDOWN. NO MISSING BELONGINGS. PATIENT LEFT UNIT AT 1600 VIA GURNEY. IN STABLE CONDITION. NO ACUTE DISTRESS. NO FACIAL GRIMACE. COUNTER ATTENDANT REMOVED. MD AWARE OF DISCHARGE.
[2018-10-25] MEDS ORDERED: EPOETIN ALFA (10,000 UNIT) 10,000 UNIT/ML VIAL SQ SCH (17:00)
== END 2018-10-24 16:30 | DRG 130 ==
LOC: ER 10:13 → TELE 13:57 → MED 16:49 → TELE 16:59 → MED 10-21 08:24 → TELE 10-21 08:46
PROVIDERS: ADMIT Family Medicine; ATTEND Nurse Practitioner Acute Care
PROC: 5A1955Z Respiratory Ventilation, Greater than 96 Consecutive Hours (ICD-10-PCS; principal; 2018-10-18)
DX: J69.0 Pneumonitis due to inhalation of food and vomit (principal); N17.0 Acute kidney failure with tubular necrosis; G93.49 Other encephalopathy; J96.10 Chronic respiratory failure, unspecified whether with hypoxia or hypercapnia; I12.0 Hypertensive chronic kidney disease with stage 5 chronic kidney disease or end stage renal disease; N18.6 End stage renal disease; G40.909 Epilepsy, unspecified, not intractable, without status epilepticus; J96.11 Chronic respiratory failure with hypoxia; R13.10 Dysphagia, unspecified; Z99.11 Dependence on respirator [ventilator] status; Z93.1 Gastrostomy status; Z93.0 Tracheostomy status; I69.351 Hemiplegia and hemiparesis following cerebral infarction affecting right dominant side; Z79.51 Long term (current) use of inhaled steroids; Z79.899 Other long term (current) drug therapy; D63.8 Anemia in other chronic diseases classified elsewhere; E78.5 Hyperlipidemia, unspecified; L98.9 Disorder of the skin and subcutaneous tissue, unspecified; J98.11 Atelectasis
CPT/HCPCS: 31720; 36415; 70450-TC; 71045-TC; 80048-TC; 80061-TC; 80076-TC; 83605-TC; 83735-TC; 84100-TC; 84443-TC; 84484-TC; 85025-TC; 85730-TC; 87040-TC; 87070-TC; 87081-TC; 94002-TC; 94003-TC; 94640-TC; 94760-TC; 94761-TC; 94762-TC; 94799-TC; 99082-TC; A4349; A4623; A6402; A7526; G0378; G0480; J1953; J2060; J3480; J3490; J7030; J7060

== ENCOUNTER 2018-12-02 19:39 | Inpatient (IN) | payer OTHER ==
[~2018-12-02] VITALS: Ht 185.4 cm; Wt 80.3 kg
[~2018-12-02 19:39] MED LIST: ACET160L33 GT; ACET160S GT; ALBU2.5V38 IH; AMLO10TA7 GT; BISA10SU61 RC; CLON0.2T GT; CRAN3875 GT; DOCU50LI GT; EPOE1VIA6 SQ; FOLI0.8T2 GT; IPRA0.2S9 IH; LEVE100S2 GT; LISI40TA4 GT; MAGN400O6 GT; MUPI22OI7; NA P133E RC; PROP40TA7 GT
--- NOTE | 2018-12-02 19:40 | NUR ---
PT BIBRA FROM SNF C/O PRESSURE-LIKE CHEST PAIN X20 MIN CONTROL VALVE MECHANIC. RADIATES TO R ARM, PAIN 8/10. PER RA, REC'D 2 SPRAY NITRO EN ROUTE WITH RELIEF, PT DENIES AT THIS TIME. PT AAOX4. NOTED TRACH AND G TUBE. RESPIRATIONS EVEN AND UNLABORED. PLACED ON CONTINUOUS ASSOCIATE RESEARCH SCIENTIST AND PULSE OX, WILL CONTINUE TO MONITOR. WAITING MD EVALUATION.
--- NOTE | 2018-12-02 19:55 | NUR ---
PT ARRIVED TO ED WITH IV R FOREARM 18G. LABS DRAWN FROM SITE AND SENT TO LAB. IV INTACT AND PATENT, PLACED ON SALINE LOCK
--- NOTE | 2018-12-02 20:05 | NUR ---
RADIOLOGY AT BEDSIDE FOR CXR
[2018-12-02 20:15] LABS: BASOPHILS # (AUTO) 0.1 /CMM (0.0-0.2); BASOPHILS % (AUTO) 0.3 % (0.0-2.0); EOSINOPHILS % (AUTO) 1.9 % (0.0-6.0); HEMATOCRIT 35 % (39-51); HEMOGLOBIN 11.9 g/dL (13.5-17.5); LYMPHOCYTES # (AUTO) 4.2 /CMM (0.8-4.8); LYMPHOCYTES % (AUTO) 22.1 % (20.0-44.0); MEAN CORPUSCULAR HGB CONC 34 g/dl (31.0-36.0); MEAN CORPUSCULAR VOLUME 83 fL (80-96); MONOCYTES # (AUTO) 1.1 /CMM (0.1-1.30); MONOCYTES % (AUTO) 5.9 % (2.0-12.0); NEUTROPHILS # (AUTO) 13.2 /CMM (1.8-8.9); NEUTROPHILS % (AUTO) 69.8 % (43.0-81.0); PLATELET COUNT (AUTO) 235 /CMM (150-450); RED BLOOD CELL COUNT(AUTO) 4.24 MIL/uL (4.5-6.0); WHITE BLOOD COUNT (AUTO) 18.9 K/uL (4.3-11.0)
--- NOTE | 2018-12-02 20:40 | NUR ---
PT RESTING COMFORTABLY IN BED. VITAL SIGNS STABLE. DENIES PAIN AT THIS TIME. WILL CONTINUE TO MONITOR.
[2018-12-02 20:42] LABS: CALCIUM, SERUM 9.2 mg/dL (8.5-10.1); CARBON DIOXIDE 29 mmol/L (21-32); CHLORIDE 105 mmol/L (98-107); CREATININE 1.7 mg/dL (0.6-1.3); GLUCOSE 104 mg/dL (74-106); POTASSIUM 4.3 mmol/L (3.5-5.1); SODIUM SERUM 143 mmol/L (136-145); UREA NITROGEN, BLOOD 29 mg/dL (7-18)
[2018-12-02] MEDS ORDERED: IV NS 0.9% 500 ML BAG IV ONE ×2 (21:30→23:00)
[2018-12-02] MEDS ORDERED: CEFTRIAXONE 1GM BAG (ER ONLY) 50 ML IV ONE (22:26)
--- NOTE | 2018-12-02 22:27 | NUR ---
URINE COLLECTED AND SENT TO LAB
[2018-12-02] MEDS ORDERED: CEFTRIAXONE 1 G in IV D5W 50 ML IV ONE (22:30)
[2018-12-02 22:42] LABS: APPEARANCE,URINE Clear (CLEAR); BILIRUBIN,URINE Negative (NEGATIVE); BLOOD, URINE Trace-intact Ery/uL (NEGATIVE); COLOR,URINE Yellow (YELLOW); KETONES,URINE Negative (NEGATIVE); LEUKOCYTE ESTERASE ,URINE Negative (NEGATIVE); NITRITE, URINE Negative (NEGATIVE); PH,URINE 6.5 (5.0-8.0); PROTEIN,URINE Negative (NEGATIVE); UGLUCOSE Negative (NEGATIVE); UROBILINOGEN,URINE 0.2 EU/dL (0.2)
[2018-12-02 22:55] LABS: ALBUMIN 3.6 g/dL (3.4-5.0); BILIRUBIN,DIRECT 0.1 mg/dL (0.0-0.2); BILIRUBIN,TOTAL 0.3 mg/dL (0.2-1.0); TOTAL PROTEIN, SERUM 8.1 g/dL (6.4-8.2)
[2018-12-02 23:24] LABS: BACTERIA,URINE Rare /HPF (None Seen); SQUAMOUS EPITHELIAL CELL,UR Rare /HPF (None Seen); WBC,URINE 0-2 /HPF (0-3)
[2018-12-03] VITALS (7 sets, daily range): BP systolic 102–160; BP diastolic 72–105
[2018-12-03] MEDS ORDERED: HYDROCODONE/APAP 5/325MG 1 EACH TABLET PO PRN
[2018-12-03] MEDS ORDERED: IPRATROPIUM NEB FS 0.5 MG/2.5 ML AMPUL.NEB IH PRN
[2018-12-03] MEDS ORDERED: BISACODYL SUPP (10 MG) 10 MG/SUPP.RECT SUPP.RECT RC PRN
[2018-12-03] MEDS ORDERED: ONDANSETRON HCL/PF 4 MG/2 ML VIAL IVP PRN
[2018-12-03] MEDS ORDERED: MAGNESIUM HYDROXIDE 30 ML UDC PO PRN
[2018-12-03] MEDS ORDERED: ACETAMINOPHEN 325 MG TABLET PO PRN
[2018-12-03] MEDS ORDERED: CEFTRIAXONE 1 G in IV D5W 50 ML IV SCH ×2
[2018-12-03] MEDS ORDERED: MAG HYDROX/AL HYDROX/SIMETH 30 ML UDC PO PRN
[2018-12-03] MEDS ORDERED: Z GUARD REMEDY 2 OZ OINT TP PRN
[2018-12-03] MEDS ORDERED: ALBUTEROL FS 2.5 MG/3 ML VIAL.NEB IH PRN
--- NOTE | 2018-12-03 00:17 | NUR ---
PT RESTING COMFORTABLY IN BED. DENIES PAIN AT THIS TIME. WILL CONTINUE TO MONITOR
--- NOTE | 2018-12-03 01:15 | NUR ---
GAVE REPORT TO CHAD PANTOJA FOR ANAND
--- NOTE | 2018-12-03 01:25 | NUR ---
HOME APPLIANCE TECH NOTES PATIENT ARRIVED ON THE UNIT AT 0125 VIA GURNEY. VITALS UPON ADMISSION ARE: 160/91, PULSE 87, RESPIRATIONS 18, TEMPERATURE 98.1, O2 SAT 99%. WEIGHT 179 POUNDS. PATIENT HAS NO COMPLAINTS OF CHEST PAIN OR ANY PAIN IN THE BODY. NO COMPLAINTS OF NAUSEA/VOMITING. NO SIGNS OF RESPIRATORY DISTRESS. DENIES SOB AT THIS TIME. PATIENT IS CLEAN, DRY, COMFORTABLE. SAFETY PRECAUTIONS IMPLEMENTED; CALL LIGHT WITHIN REACH, BED LOW, BED LOCKED, SIDE RAILS UP X2. AWAITING ADMISSION ORDERS.
--- NOTE | 2018-12-03 01:31 | NUR ---
PT TRANSFERRED PER ACLS PROTOCOL
[2018-12-03] MEDS: IV NS 0.9% 1,000 ML IV PRN ×2 (03:15→16:48)
[2018-12-03] MEDS: PROPRANOLOL HCL 40 MG TABLET GT SCH ×3 (04:48→21:00)
--- NOTE | 2018-12-03 07:04 | NUR ---
RN NOTES PATIENT A/O X 2.
--- NOTE | 2018-12-03 07:04 | NUR ---
RN CLOSING NOTES PATIENT IS AWAKE, RESTING IN BED COMFORTABLY. A/O X 4. NO SIGNS OF RESPIRATORY DISTRESS OR DISCOMFORT. DENIES SOB. DENIES CHEST PAIN, OR ANY TYPE OF PAIN AT THIS TIME. NO N/V NOTED. GTUBE SITE INTACT. IV ACCESS INTACT AND PATENT. SAFETY PRECAUTIONS IMPLEMENTED; CALL LIGHT WITHIN REACH, BED IN LOWEST POSITION, BED LOCKED, SIDE RAILS UP X2. WILL ENDORSE TO AM RN FOR CONTINUITY OF CARE.
[2018-12-03 07:17] LABS: BASOPHILS % (AUTO) 0.3 % (0.0-2.0); EOSINOPHILS % (AUTO) 3.2 % (0.0-6.0); HEMATOCRIT 33 % (39-51); HEMOGLOBIN 11.2 g/dL (13.5-17.5); LYMPHOCYTES % (AUTO) 22.5 % (20.0-44.0); MEAN CORPUSCULAR HGB CONC 34 g/dl (31.0-36.0); MEAN CORPUSCULAR VOLUME 83 fL (80-96); MONOCYTES # (AUTO) 0.9 /CMM (0.1-1.30); MONOCYTES % (AUTO) 6.5 % (2.0-12.0); NEUTROPHILS # (AUTO) 9.1 /CMM (1.8-8.9); NEUTROPHILS % (AUTO) 67.5 % (43.0-81.0); PLATELET COUNT (AUTO) 205 /CMM (150-450); RED BLOOD CELL COUNT(AUTO) 3.98 MIL/uL (4.5-6.0); WHITE BLOOD COUNT (AUTO) 13.4 K/uL (4.3-11.0)
[2018-12-03 07:36] LABS: ALANINE AMINOTRANSFERASE 168 U/L (12-78); ALBUMIN 3.4 g/dL (3.4-5.0); ALKALINE PHOSPHATASE 100 U/L (46-116); ASPARTATE AMINOTRANSFERASE 35 U/L (15-37); BILIRUBIN,DIRECT 0.1 mg/dL (0.0-0.2); BILIRUBIN,TOTAL 0.3 mg/dL (0.2-1.0); CARBON DIOXIDE 28 mmol/L (21-32); CHLORIDE 108 mmol/L (98-107); CREATININE 1.5 mg/dL (0.6-1.3); GLUCOSE 90 mg/dL (74-106); MAGNESIUM 1.8 mg/dL (1.8-2.4); PHOSPHORUS 3.2 mg/dL (2.5-4.9); POTASSIUM 3.8 mmol/L (3.5-5.1); SODIUM SERUM 143 mmol/L (136-145); TOTAL PROTEIN, SERUM 7.6 g/dL (6.4-8.2); UREA NITROGEN, BLOOD 24 mg/dL (7-18)
[2018-12-03 07:41] LABS: CHOLESTEROL 156 mg/dL (<200); HDL CHOLESTEROL 56 mg/dL (40-60); LDL 91 mg/dL (0-99); THYROID STIMULATING HORMONE 1.571 uIU/mL (0.358-3.74); TRIGLYCERIDES 50 mg/dL (30-150)
[2018-12-03] MEDS: ALBUTEROL FS 2.5 MG/3 ML VIAL.NEB IH SCH ×3 (07:50→19:32)
[2018-12-03] MEDS: IPRATROPIUM NEB FS 0.5 MG/2.5 ML AMPUL.NEB IH SCH ×3 (07:50→19:32)
--- NOTE | 2018-12-03 08:00 | NUR ---
M/S RN NOTES PATIENT AWAKE, LYING IN BED, ALERT AND ORIENTED X2. NO RESPIRATORY DISTRESS NOTED, NO C/O PAIN AT THIS TIME. SKIN WARM TO TOUCH IVF OF NS INFUSING AT 75ML/HR ON THE RFA #18G, INTACT AND PATENT, NO REDNESS, NO INFILTRATION NOTED. PATIENT'S NEEDS ATTENDED. BED ON LOWEST LOCKED POSITION, CALL LIGHT WITHIN REACH. WILL CONTINUE TO MONITOR. Addendum: 12/03/18 at 1410 by JANELLE GALICIA RN THIS PATIENT IS ON TELE, REHAB/PRE VOCATIONAL COUNSELOR ON, SINUS TACHY AT 102
[2018-12-03] MEDS ORDERED: Medication Not On Formulary EA (Folic Acid/Vitamin B Comp W-C (Nephro-Vite Tablet) 0.8 M GT SCH (09:00)
[2018-12-03] MEDS ORDERED: PANTOPRAZOLE 40 MG VIAL IV SCH (09:00)
[2018-12-03] MEDS: DOCUSATE SODIUM LIQ 100 MG/10 ML UDC GT SCH ×2 (09:40→21:15)
[2018-12-03] MEDS: LEVETIRACETAM SOL (5 ML) 100 MG/ML UDC GT SCH (09:40)
[2018-12-03] MEDS: CLONIDINE HCL 0.1 MG TABLET GT SCH ×2 (09:40→16:59)
[2018-12-03] MEDS: VIT B CMPLX 3/FA/VIT C/BIOTIN 1 TAB TABLET GT SCH (09:40)
[2018-12-03] MEDS: AMLODIPINE BESYLATE 10 MG TABLET GT SCH (09:41)
[2018-12-03] MEDS: MUPIROCIN OINT 2% 22 GM TUBE SCH ×2 (13:22→21:15)
[2018-12-03] MEDS: LEVOFLOXACIN 500 MG /D5W 100ML 500 MG in PREMIX 1 EA IV SCH (16:42)
[2018-12-03] MEDS: FAMOTIDINE/PF INJ 20 MG/2 ML VIAL IV SCH (16:57)
[2018-12-03] MEDS ORDERED: Medication Not On Formulary EA (Cran/Vitc/Mannose/Inulin/Brom (Uti-Stat Liquid) 30 ML) GT SCH (17:00)
--- NOTE | 2018-12-03 17:09 | NUR ---
RT NOTE: RECEIVED TRACH PT WITH PORTEX SIZE 6 WITH TRACH CAP IN PLACE ON ROOM AIR. YVETTE WELL. NO RESPIRATORY DISTRESS NOTED. TRACH CHECKED SECURE AND PATENT. PT AWAKE AND ALERT. BILATERAL BS CLEAR/DIMINISHED. NO TRACHEAL SX NEEDED @ THIS TIME. TXS GIVEN ORDERED WITH NO ADVERSE REACTIONS NOTED. EMERGENCY EQUIPMENT @ BEDSIDE. WILL CONTINUE TO MONITOR. Addendum: 12/03/18 at 1711 by RAFA HA RT Amended: Links added.
--- NOTE | 2018-12-03 19:35 | NUR ---
M/S RN NOTES PATIENT AWAKE IN BED, NO RESPIRATORY DISTRESS, NO C/O PAIN AT THIS TIME. SKIN WARM TO TOUCH. IVF OF NS INFUSING ON THE RFA #18G, INTACT AND PATENT. PATIENT'S NEEDS ATTENDED. BED ON LOWEST LOCKED POSITION, CALL LIGHT WITHIN REACH, WILL ENDORSE TO ONCOMING NURSE.
--- NOTE | 2018-12-03 19:45 | NUR ---
MS/RN OPENING NOTES RECEIVED PATIENT IN BED, CAN OPEN EYES, RESPONSIVE, ABLE TO FOLLOW SIMPLE COMMANDS, RESPIRATIONS EVEN AND UNLABORED, ON NPO STATUS ORDERED WITH GTUBE, WITH TRAECH STARR 6. REQUIRE ASSISTANCE ON TELE MONITOR WITH SINUS WITH PVC, SWITH SOME SKIN CONCERNS, WILL MONITOR. RECEIVED ENDORSEMENT FROM AM RN FOR ANAND.
[2018-12-04] VITALS: BP 135/85
[2018-12-04] MEDS: IPRATROPIUM NEB FS 0.5 MG/2.5 ML AMPUL.NEB IH SCH ×4 (02:06→20:15)
[2018-12-04] MEDS: ALBUTEROL FS 2.5 MG/3 ML VIAL.NEB IH SCH ×4 (02:06→20:15)
[2018-12-04 03:37] VITALS: BP 143/98
[2018-12-04] MEDS: PROPRANOLOL HCL 40 MG TABLET GT SCH ×3 (04:15→21:32)
--- NOTE | 2018-12-04 06:30 | NUR ---
tele/rn notes endorsement given to yoav rn for elba.
[2018-12-04 07:05] LABS: BASOPHILS % (AUTO) 0.4 % (0.0-2.0); EOSINOPHILS % (AUTO) 3.5 % (0.0-6.0); HEMATOCRIT 35 % (39-51); HEMOGLOBIN 11.6 g/dL (13.5-17.5); LYMPHOCYTES # (AUTO) 3.5 /CMM (0.8-4.8); LYMPHOCYTES % (AUTO) 40.2 % (20.0-44.0); MEAN CORPUSCULAR HGB CONC 33 g/dl (31.0-36.0); MEAN CORPUSCULAR VOLUME 85 fL (80-96); MONOCYTES # (AUTO) 0.7 /CMM (0.1-1.30); MONOCYTES % (AUTO) 7.6 % (2.0-12.0); NEUTROPHILS # (AUTO) 4.2 /CMM (1.8-8.9); NEUTROPHILS % (AUTO) 48.3 % (43.0-81.0); PLATELET COUNT (AUTO) 191 /CMM (150-450); WHITE BLOOD COUNT (AUTO) 8.7 K/uL (4.3-11.0)
--- NOTE | 2018-12-04 07:15 | NUR ---
ASSISTANT PASTRY CHEF OPENING NOTES RECEIVED PATIENT AWAKE IN BED RESTING, ALERT AND ORIENTED X2, CONFUSED, FOLLOWS COMMAND. NO RESPIRATORY DISTRESS NOTED, NO S/S OF PAIN OR DISCOMFORT AT THIS TIME. SKIN WARM TO TOUCH. NO IV ACCESS, PER NIGHT RN, ACCIDENTALLY PULLED OUT BY PATIENT. WILL REINSERT NEW IV LINE. PATIENT'S NEEDS ATTENDED. KEPT PATIENT SAFE AND COMFORTABLE. BED IN LOWEST/LOCKED POSITION, CALL LIGHT WITHIN REACH. SIDERAILS UP. WILL CONTINUE TO MONITOR ACCORDINGLY.
[2018-12-04 07:42] LABS: CALCIUM, SERUM 9.2 mg/dL (8.5-10.1); CREATININE 1.5 mg/dL (0.6-1.3); MAGNESIUM 1.9 mg/dL (1.8-2.4); PHOSPHORUS 3.2 mg/dL (2.5-4.9); POTASSIUM 3.9 mmol/L (3.5-5.1)
--- NOTE | 2018-12-04 07:45 | NUR ---
RN NOTES PATIENT ORIENTED TO NAME ONLY. HE SAID HE LIVES IN [place] AND ALIENS INVADED HIS GARAGE.
[2018-12-04 08:00] VITALS: BP 164/88
--- NOTE | 2018-12-04 08:30 | NUR ---
RN NOTES NEW IV ACCESS INSERTED INTACT AND PATENT, RIGHT FOREARM GAUGE 20.
[2018-12-04] MEDS: AMLODIPINE BESYLATE 10 MG TABLET GT SCH (08:35)
[2018-12-04] MEDS: CLONIDINE HCL 0.1 MG TABLET GT SCH ×2 (08:35→18:01)
[2018-12-04] MEDS: DOCUSATE SODIUM LIQ 100 MG/10 ML UDC GT SCH ×2 (08:37→21:31)
[2018-12-04] MEDS: VIT B CMPLX 3/FA/VIT C/BIOTIN 1 TAB TABLET GT SCH (08:41)
[2018-12-04] MEDS: LEVETIRACETAM SOL (5 ML) 100 MG/ML UDC GT SCH (08:41)
[2018-12-04] MEDS: MUPIROCIN OINT 2% 22 GM TUBE SCH ×2 (08:43→21:31)
[2018-12-04] MEDS: FAMOTIDINE/PF INJ 20 MG/2 ML VIAL IV SCH ×2 (09:14→18:02)
[2018-12-04] MEDS: IV NS 0.9% 1,000 ML IV PRN (12:05)
--- NOTE | 2018-12-04 12:57 | NUR ---
WOUND CARE CONSULT: PT FOLLOWED BY PLASTIC SURGERY TEAM FOR WOUND/SKIN CARE. DEFER TO SURGICAL TEAM FOR WOUND TREATMENT PLAN. ISOFLEX LOW AIRLOSS BED TO BE PLACED. DISCUSSED SKIN PROTECTION WITH NURSING STAFF. WILL SEE PRN. CURRENT ANDREEA SCORE IS 17.
--- NOTE | 2018-12-04 15:23 | NUR ---
RN NOTES PER DIETARY, SHE SPOKE WITH THE SNF AND FOUND OUT THAT THE PATIENT EATS VIA PO AND TUBE FEEDING WELL. RECOMMENDATION TO START GTUBE FEEDING TODAY AND WILL DO SWALLOW EVAL TOMORROW. WILL INFORM
[2018-12-04] MEDS ORDERED: ALBUTEROL HALF STRENGTH 1.25 MG/3 ML VIAL.NEB NEB PRN (15:30)
--- NOTE | 2018-12-04 15:46 | NUR ---
RN NOTES: RN NOTES SPOKE WITH SCARLETT PIZANO, MARCELLELECTRIC SOLDERER. VERIFIED PATIENT'S ORIENTATION. PER JERICA RN, PATIENT BASELINE IS ALERT WITH CONFUSION AND HE GETS OFF THE TOPIC IN A CONVERSATION WHEN PATIENT STARTS TO SPEAK..
[2018-12-04 16:00] VITALS: BP 137/80
--- NOTE | 2018-12-04 16:13 | NUR ---
TRANSFERRED IN ISOFLEX BED
[2018-12-04] MEDS: LEVOFLOXACIN 500 MG /D5W 100ML 500 MG in PREMIX 1 EA IV SCH (18:03)
--- NOTE | 2018-12-04 19:20 | NUR ---
RN CLOSING NOTES PATIENT IN STABLE CONDITION. ALL NEEDS ATTENDED AND PROVIDED. ALL DUE MEDICATIONS ADMINISTERED ORDERED. ASSISTED WITH ADLS. KEPT PATIENT SAFE AND COMFORTABLE. BED IN LOW/LOCKED POSITION, SIDERAILS UPX2, CALL LIGHT IN REACH. ENDORSED TO NIGHT RN FOR ANAND.
--- NOTE | 2018-12-04 19:50 | NUR ---
RN NOTES RECEIVED PATIENT AWAKE, A/O X2, NO SIGNS OF ACUTE RESPIRATORY DISTRESS NOTED, SAFETY MEASURES IN PLACE, ASPIRATION PRECAUTION EMPHASIZE, BED IN LOW LOCKED POSITION, SITTER AT BEDSIDE, IV ACCESS INTACT AND PATENT, GT INTACT AND PATENT, REPOSITIONED FOR COMFORT, ALL NEEDS ATTENDED, WILL CONTINUE TO MONITOR ACCORDINGLY.
[2018-12-04 20:00] VITALS: BP 151/98
[2018-12-04] MEDS: JEVITY 1.2 CAL 1,000 ML BOTTLE GT PRN (20:02)
[2018-12-05] MEDS: ALBUTEROL FS 2.5 MG/3 ML VIAL.NEB IH SCH ×4 (01:32→20:02)
[2018-12-05] MEDS: IPRATROPIUM NEB FS 0.5 MG/2.5 ML AMPUL.NEB IH SCH ×4 (01:32→20:02)
[2018-12-05] MEDS: IV NS 0.9% 1,000 ML IV PRN (04:19)
[2018-12-05] MEDS: PROPRANOLOL HCL 40 MG TABLET GT SCH ×3 (05:33→23:19)
[2018-12-05 06:31] LABS: ALBUMIN 3.3 g/dL (3.4-5.0); BILIRUBIN,DIRECT 0.1 mg/dL (0.0-0.2); BILIRUBIN,TOTAL 0.3 mg/dL (0.2-1.0); TOTAL PROTEIN, SERUM 7.7 g/dL (6.4-8.2)
--- NOTE | 2018-12-05 06:52 | NUR ---
RN NOTES ALL NEEDS ATTENDED AND MET, ABLE TO REST AND SLEEP AT INTERVALS, NO C/O PAIN, SITTER AT BEDSIDE, SAFETY MEASURES IN PLACE, ASPIRATION PRECAUTION MAINTAINED, KEPT RESTED, KEEP CLEAN DRY AND COMFORTABLE, IV ACCESS INTACT AND PATENT, FEEDING TOLERATING WELL, WILL ENDORSE TO AM NURSE FOR CONTINUITY OF CARE.
--- NOTE | 2018-12-05 07:32 | NUR ---
MS/RN OPENING NOTE PATIENT IN BED IN STABLE CONDITION. A/O X 2-3. NO SIGNS OF ACUTE DISTRESS. NO COMPLAIN OF PAIN OR DISCOMFORT. NOTED WITH TRACH PORTEX 6, CAPPED. TOLERATING WELL. ALL NEEDS ATTENDED TO AT THIS TIME. CALL LIGHT WITHIN REACH. WILL CONTINUE TO MONITOR TO ENSURE SAFETY.
[2018-12-05 08:00] VITALS: BP 166/99
[2018-12-05] MEDS: DOCUSATE SODIUM LIQ 100 MG/10 ML UDC GT SCH ×2 (08:43→23:18)
[2018-12-05] MEDS: LEVETIRACETAM SOL (5 ML) 100 MG/ML UDC GT SCH (08:43)
[2018-12-05] MEDS: AMLODIPINE BESYLATE 10 MG TABLET GT SCH (08:43)
[2018-12-05] MEDS: VIT B CMPLX 3/FA/VIT C/BIOTIN 1 TAB TABLET GT SCH (08:43)
[2018-12-05] MEDS: FAMOTIDINE/PF INJ 20 MG/2 ML VIAL IV SCH ×2 (08:43→16:09)
[2018-12-05] MEDS: CLONIDINE HCL 0.1 MG TABLET GT SCH ×2 (08:44→16:15)
[2018-12-05] MEDS: MUPIROCIN OINT 2% 22 GM TUBE SCH ×2 (09:48→21:00)
[2018-12-05 10:08] LABS: BASOPHILS # (AUTO) 0.1 /CMM (0.0-0.2); BASOPHILS % (AUTO) 0.6 % (0.0-2.0); HEMATOCRIT 34 % (39-51); HEMOGLOBIN 11.5 g/dL (13.5-17.5); LYMPHOCYTES # (AUTO) 2.9 /CMM (0.8-4.8); LYMPHOCYTES % (AUTO) 36.7 % (20.0-44.0); MEAN CORPUSCULAR HGB CONC 34 g/dl (31.0-36.0); MEAN CORPUSCULAR VOLUME 84 fL (80-96); MONOCYTES # (AUTO) 0.6 /CMM (0.1-1.30); MONOCYTES % (AUTO) 7.3 % (2.0-12.0); NEUTROPHILS # (AUTO) 4.1 /CMM (1.8-8.9); NEUTROPHILS % (AUTO) 52.4 % (43.0-81.0); PLATELET COUNT (AUTO) 214 /CMM (150-450); RED BLOOD CELL COUNT(AUTO) 4.02 MIL/uL (4.5-6.0); WHITE BLOOD COUNT (AUTO) 7.9 K/uL (4.3-11.0)
[2018-12-05 10:18] LABS: CALCIUM, SERUM 9.3 mg/dL (8.5-10.1); CREATININE 1.6 mg/dL (0.6-1.3); MAGNESIUM 1.7 mg/dL (1.8-2.4); PHOSPHORUS 3.5 mg/dL (2.5-4.9); POTASSIUM 3.9 mmol/L (3.5-5.1)
[2018-12-05] MEDS ORDERED: Magnesium 1GM/D5W 100ML PREMIX 100 ML IV SCH (10:30)
[2018-12-05 16:00] VITALS: BP 134/90
[2018-12-05] MEDS: LEVOFLOXACIN 500 MG /D5W 100ML 500 MG in PREMIX 1 EA IV SCH (16:06)
[2018-12-05] MEDS ORDERED: LACT-209 GT (16:46)
--- NOTE | 2018-12-05 18:20 | NUR ---
MS/RN CLOSING NOTE PATIENT IN BED IN STABLE CONDITION. A/O X 2-3. NO SIGNS OF ACUTE DISTRESS. NO COMPLAIN OF PAIN OR DISCOMFORT. WAS SUPPOSED TO BE DISCHARGE BACK TO [facility] AND PROGRAMMER ANALYST CONSULTANT AT 5PM BUT MORTGAGE LOAN PROCESSING CLERK UNABLE TO TAKE THE PATIENT SECONDARY TO HIGH BP OF 156/108, 62, SPOKE WITH KOREY PANTOJA FROM [facility] AND REFUSE TO ACCEPT PATIENT WITH THAT ELEVATED BP SINCE PATIENT WAS TRANSFERRED OUT SECONDARY TO EVALUATION OF HIGH BP. ROUTINE MEDICATION CLONIDINE GIVEN VIA GT AT THIS TIME. CASE MGMT AWARE PER CASE MGMT WILL CALL FOR TRIP AND PROGRAMMER ANALYST CONSULTANT WILL BE AROUND 8-8:30PM. CHARGE NURSE NOTIFIED, PATIENT AWARE, PATROL CONDUCTOR KAYLA AWARE. WILL ENDORSE TO NEXT SHIFT FOR CONTINUITY OF CARE.
--- NOTE | 2018-12-05 19:30 | NUR ---
MS/RN RECEIVE PATIENT AWAKE, ALERT, ORIENTED, COMFORTABLE, NO C/O PAIN, NO DISTRESS NOTED, CALL LIGHT IN REACH. PATIENT IS FOR DISCHARGED TO [facility] TONIGHT WHEN BP IS BETTER.
--- NOTE | 2018-12-05 19:40 | NUR ---
MS/RN EMT AMBULANCE IS HERE TO SNOW REMOVAL/PLOWING THE PATIENT, VITAL SIGNS BP 147/95, HR 18, T 98.5, O2 SAT 100% ON RA. IV WAS REMOVED, REPORT GIVEN TO AMBULANCE, [facility], SPOKE TO SCARLETT PIZANO, INFORMED HIM ABOUT THE BP OF THE PATIENT, PER JERICA, THEY WILL ACCEPT THE PATIENT.
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
[2018-12-05 20:46] VITALS: BP 147/95
[2018-12-05 21:30] VITALS: BP 146/105
--- NOTE | 2018-12-05 21:52 | NUR ---
MS/RN RECEIVE PATIENT BACK FROM [facility]. PATIENT WAS SENT BACK BY [facility] FOR HIGH BP OF 181/103 PER EMT.
--- NOTE | 2018-12-05 22:30 | NUR ---
MS/RN SPOKE TO DR. FRANCO MADE HIM AWARE THAT THE PAT[facility] WAS [facility] DUE TO HIGH BP (181/103).
[2018-12-06] MEDS: JEVITY 1.2 CAL 1,000 ML BOTTLE GT PRN (00:46)
[2018-12-06] MEDS: IPRATROPIUM NEB FS 0.5 MG/2.5 ML AMPUL.NEB IH SCH ×2 (01:45→07:26)
[2018-12-06] MEDS: ALBUTEROL FS 2.5 MG/3 ML VIAL.NEB IH SCH ×2 (01:46→07:26)
--- NOTE | 2018-12-06 03:31 | NUR ---
MS/RN PATIENT IS SLEEPING AT THIS TIME, AROUSABLE, APPEAR COMFORTABLE, NO DISTRESS NOTED, CALL LIGHT IN REACH, HOB ELEVATED, WILL CONTINUE TO MONITOR.
[2018-12-06] MEDS: PROPRANOLOL HCL 40 MG TABLET GT SCH ×2 (05:00→12:41)
--- NOTE | 2018-12-06 06:15 | NUR ---
MS/RN PATIENT IS AWAKE, COMFORTABLE, NO DISTRESS NOTED, HOB ELEVATED, GT FEEDING INFUSING, ALL NEEDS ATTENDED AT THIS TIME, WILL CONTINUE TO MONITOR.
--- NOTE | 2018-12-06 07:53 | NUR ---
RN OPENING NOTES PT AWAKE AND RESTING IN BED. NO APPARENT S/S OF PAIN, DISTRESS OR SOB AT THIS TIME. PT HAS CAPPED TRACH PORTEX #6. PT HAS GT FEEDING RUNNING JEVITY AT 70ML/HR. NO IV SITE NOTED. PT DISCHARGED YESTERDAY AND [facility]. SAFETY PRECAUTIONS IN PLACE, BED IN LOWEST LOCKED POSITION, X2 SIDE RAILS UP AND CALL LIGHT WITHIN REACH. WILL CONTINUE TO MONITOR.
[2018-12-06 08:00] VITALS: BP 166/105
[2018-12-06 08:10] LABS: CALCIUM, SERUM 9.4 mg/dL (8.5-10.1); CREATININE 1.6 mg/dL (0.6-1.3); POTASSIUM 3.9 mmol/L (3.5-5.1)
[2018-12-06] MEDS: DOCUSATE SODIUM LIQ 100 MG/10 ML UDC GT SCH (08:25)
[2018-12-06] MEDS: LEVETIRACETAM SOL (5 ML) 100 MG/ML UDC GT SCH (08:25)
[2018-12-06] MEDS: FAMOTIDINE/PF INJ 20 MG/2 ML VIAL IV SCH (08:25)
[2018-12-06] MEDS: AMLODIPINE BESYLATE 10 MG TABLET GT SCH (08:26)
[2018-12-06] MEDS: CLONIDINE HCL 0.1 MG TABLET GT SCH (08:26)
[2018-12-06] MEDS: VIT B CMPLX 3/FA/VIT C/BIOTIN 1 TAB TABLET GT SCH (08:26)
[2018-12-06] MEDS ORDERED: FAMOTIDINE (20 MG) 20 MG TABLET GT SCH (10:00)
--- NOTE | 2018-12-06 10:22 | NUR ---
RN NOTES BACTROBAN NOT AT BEDSIDE OR IN PATIENT CASSETTE, INFORMED PHARMACY. PT DOES NOT HAVE IV, PEPCID ORDER CHANGED TO GT.
[2018-12-06] MEDS: MUPIROCIN OINT 2% 22 GM TUBE SCH (11:00)
[2018-12-06] MEDS ORDERED: CLONIDINE HCL 0.1 MG TABLET GT PRN (11:30)
[2018-12-06] MEDS ORDERED: CLONIDINE HCL 0.1 MG TABLET PO PRN (11:30)
[2018-12-06 12:41] VITALS: BP 157/109
--- NOTE | 2018-12-06 13:15 | NUR ---
RN NOTES PER KAYLA DODSON CHANGE ON TIME ORDER OF ATIVAN 0.5MG TO GT. WILL CARRY OUT ORDERED.
--- NOTE | 2018-12-06 13:18 | NUR ---
MECHANICAL AND AUTO BODY CAR CHECKER NOTES ALL DISCHARGE PAPERWORK TAKEN WITH PATIENT. NO BELONGINGS WITH PATIENT. PT LEFT UNIT 1318 VIA GURNEY TAKEN BY AM[facility]ULANCE TO [facility]. REPORT GIVEN TO OTIS.
[2018-12-06] MEDS ORDERED: LORAZEPAM 0.5 MG TABLET GT ONE (13:30)
[2018-12-06] MEDS ORDERED: LORAZEPAM INJ 2 MG/ML VIAL IV ONE (13:30)
[2018-12-06] MEDS ORDERED: EPOETIN ALFA (10,000 UNIT) 10,000 UNIT/ML VIAL SQ SCH (15:00)
[2018-12-06] MEDS ORDERED: LISINOPRIL (10MG) 10 MG TABLET PO SCH (15:00)
[2018-12-06] MEDS ORDERED: LEVOFLOXACIN (500MG) 500 MG TABLET GT SCH (17:00)
--- NOTE | 2018-12-08 07:36 | NUR ---
ECHO REPORT IS DONE AWAITING FOR REPORT TO CROSS OVER TO [facility].
== END 2018-12-06 13:20 | DRG 720 ==
LOC: ER 19:44 → TELE 12-03 00:33 → MED 12-04 10:52
PROVIDERS: ADMIT Nurse Practitioner Acute Care; ATTEND Registered Nurse
DX: A41.9 Sepsis, unspecified organism (principal); N17.0 Acute kidney failure with tubular necrosis; G93.49 Other encephalopathy; J96.10 Chronic respiratory failure, unspecified whether with hypoxia or hypercapnia; Z93.0 Tracheostomy status; I12.0 Hypertensive chronic kidney disease with stage 5 chronic kidney disease or end stage renal disease; N18.6 End stage renal disease; J18.9 Pneumonia, unspecified organism; R13.10 Dysphagia, unspecified; N39.0 Urinary tract infection, site not specified; I69.351 Hemiplegia and hemiparesis following cerebral infarction affecting right dominant side; Z79.51 Long term (current) use of inhaled steroids; Z79.899 Other long term (current) drug therapy; Z93.1 Gastrostomy status; G40.909 Epilepsy, unspecified, not intractable, without status epilepticus; E78.5 Hyperlipidemia, unspecified; D63.8 Anemia in other chronic diseases classified elsewhere; L98.9 Disorder of the skin and subcutaneous tissue, unspecified; J98.11 Atelectasis
CPT/HCPCS: 36415; 71045-TC; 76700-TC; 80048-TC; 80061-TC; 80076-TC; 81000-TC; 83605-TC; 83690-TC; 83735-TC; 84100-TC; 84443-TC; 84484-TC; 85025-TC; 85730-TC; 87040-TC; 87081-TC; 87086-TC; 93307-TC; A4216; A4217; G0378; J0696; J0885; J1953; J1956; J3475; J3490; J7030; J7040; J7060

== ENCOUNTER 2018-12-09 14:14 | Emergency (ER) | payer OTHER ==
[~2018-12-09] VITALS: Ht 185.4 cm; Wt 85.7 kg
[~2018-12-09 14:14] MED LIST changes: +LACT-209 GT
--- NOTE | 2018-12-09 14:20 | NUR ---
[facility], PRESSURE LIKE CHEST PAIN 1 HOUR PER REPORT. CHEST PAIN FREE UNLEAVENED DOUGH MIXER. PATIENT A/OX2-3, BREATHING EVEN AND UNLABORED, DENIES CHEST PAIN AT THIS TIME. ATTACHED TO THE BEHAVIORAL SCIENCES INSTRUCTOR.
[2018-12-09] MEDS ORDERED: ACETAMINOPHEN ES 500 MG TABLET PO ONE (14:30)
[2018-12-09 14:46] LABS: BASOPHILS # (AUTO) 0.1 /CMM (0.0-0.2); EOSINOPHILS % (AUTO) 3.4 % (0.0-6.0); HEMATOCRIT 35 % (39-51); HEMOGLOBIN 12.1 g/dL (13.5-17.5); LYMPHOCYTES # (AUTO) 3.1 /CMM (0.8-4.8); LYMPHOCYTES % (AUTO) 36.6 % (20.0-44.0); MEAN CORPUSCULAR HGB CONC 34 g/dl (31.0-36.0); MEAN CORPUSCULAR VOLUME 84 fL (80-96); MONOCYTES # (AUTO) 0.6 /CMM (0.1-1.30); MONOCYTES % (AUTO) 6.5 % (2.0-12.0); NEUTROPHILS # (AUTO) 4.4 /CMM (1.8-8.9); NEUTROPHILS % (AUTO) 52.5 % (43.0-81.0); PLATELET COUNT (AUTO) 215 /CMM (150-450); RED BLOOD CELL COUNT(AUTO) 4.22 MIL/uL (4.5-6.0); WHITE BLOOD COUNT (AUTO) 8.5 K/uL (4.3-11.0)
[2018-12-09] MEDS ORDERED: MINO2.5T GT (14:50)
[2018-12-09] MEDS ORDERED: CHLO473M3 MM (14:50)
[2018-12-09] MEDS ORDERED: NUT.237L67 GT (14:50)
[2018-12-09] MEDS ORDERED: ACETAMINOPHEN ES 500 MG TABLET ONE (14:52)
[2018-12-09 14:54] LABS: CALCIUM, SERUM 9.4 mg/dL (8.5-10.1); CARBON DIOXIDE 27 mmol/L (21-32); CHLORIDE 105 mmol/L (98-107); CREATININE 1.6 mg/dL (0.6-1.3); GLUCOSE 107 mg/dL (74-106); POTASSIUM 3.9 mmol/L (3.5-5.1); SODIUM SERUM 142 mmol/L (136-145); UREA NITROGEN, BLOOD 25 mg/dL (7-18)
--- NOTE | 2018-12-09 18:00 | NUR ---
PATIENT A/OX3, DENIES PAIN AT THIS TIME. BREATHING EVEN AND UNLABORED, NO SOB NOTED.
--- NOTE | 2018-12-09 18:35 | NUR ---
ETHEL ARRANGED, ETA 2044, TRIP#[id number]
--- NOTE | 2018-12-09 19:17 | NUR ---
PT RECEIVED FROM SCARLETT MARIE FOR ANAND. IN BED. NAD NOTED. BREATHING EVEN AND UNLBAROED.
--- NOTE | 2018-12-09 20:30 | NUR ---
REPORT GIVEN TO [facility] SUNG [facility] FOR [facility]. ETA AT 2044.
--- NOTE | 2018-12-09 20:58 | NUR ---
CALLED MAYTE, NEW ETA [phone]
--- NOTE | 2018-12-09 21:15 | NUR ---
LUX GE SISTER CALLED TO CHECK ON PT.
[2018-12-09] MEDS ORDERED: CLONIDINE HCL 0.1 MG TABLET ONE (21:20)
--- NOTE | 2018-12-09 21:20 | NUR ---
PT NOTED WITH BP 172/114. MADE AWARE. RECEIVED ORDER TO GIVE CLONIDINE 0.2 MG VIA GT X1. PT HAS AN ORDER FROM FACILITY FOR THIS MEDICATION FOR ELEVATED SBP> 160. ORDER NOTED AND CARRIED OUT
[2018-12-09] MEDS ORDERED: CLONIDINE HCL 0.1 MG TABLET PO ONE (22:00)
--- NOTE | 2018-12-09 22:13 | NUR ---
ETHEL #120 AT BEDSIDE FOR PT TRANSPORT TO [facility]. REPORT GIVEN. PT IN STABLE CONDITION FOR TRANSPORT. NAD NOTED. VSS
[2018-12-09 22:15] VITALS: BP 152/94
== END 2018-12-09 22:23 | disposition home or self-care (01) ==
LOC: ER 14:16
DX: R07.89 Other chest pain (principal); G40.909 Epilepsy, unspecified, not intractable, without status epilepticus; I67.4 Hypertensive encephalopathy; I12.0 Hypertensive chronic kidney disease with stage 5 chronic kidney disease or end stage renal disease; N18.6 End stage renal disease; Z86.73 Personal history of transient ischemic attack (TIA), and cerebral infarction without residual deficits; Z93.0 Tracheostomy status; Z98.890 Other specified postprocedural states
CPT/HCPCS: 36415; 71045-TC; 80048-TC; 84484-TC; 85025-TC

== ENCOUNTER 2019-02-24 12:04 | Emergency (ER) | payer OTHER ==
[~2019-02-24] VITALS: Ht 195.6 cm; Wt 93.9 kg
[~2019-02-24 12:04] MED LIST changes: +CHLO473M3 MM; -CRAN3875 GT; -LACT-209 GT; +MINO2.5T GT; -MUPI22OI7; +NUT.237L67 GT; -PROP40TA7 GT
--- NOTE | 2019-02-24 12:17 | NUR ---
[facility]AL [facility] "[facility]", PT IS AAOX2, NOT IN RESPIRATORY DISTRESS, HOOKED TO DIE CASTING MACHINE OPERATOR, KEPT RESTED AND COMFORTABLE, WILL CONTINUE TO MONITOR.
--- NOTE | 2019-02-24 12:18 | NUR ---
SEEN AND EXAMINED BY .
--- NOTE | 2019-02-24 12:24 | NUR ---
IV LINE ESTABLISHED, BLOOD DRAWNED AND SENT TO LAB.
[2019-02-24] MEDS ORDERED: PROP40TA7 PO (12:27)
--- NOTE | 2019-02-24 12:33 | NUR ---
SENIOR ORACLE PL SQL DEVELOPER AT BEDSIDE FOR XRAY.
[2019-02-24 12:45] LABS: BASOPHILS # (AUTO) 0.1 /CMM (0.0-0.2); BASOPHILS % (AUTO) 1.1 % (0.0-2.0); HEMATOCRIT 36 % (39-51); HEMOGLOBIN 12.4 g/dL (13.5-17.5); LYMPHOCYTES # (AUTO) 3.1 /CMM (0.8-4.8); LYMPHOCYTES % (AUTO) 42.7 % (20.0-44.0); MEAN CORPUSCULAR HGB CONC 35 g/dl (31.0-36.0); MEAN CORPUSCULAR VOLUME 84 fL (80-96); MONOCYTES # (AUTO) 0.5 /CMM (0.1-1.30); MONOCYTES % (AUTO) 6.6 % (2.0-12.0); NEUTROPHILS # (AUTO) 3.2 /CMM (1.8-8.9); NEUTROPHILS % (AUTO) 43.6 % (43.0-81.0); PLATELET COUNT (AUTO) 197 /CMM (150-450); RED BLOOD CELL COUNT(AUTO) 4.24 MIL/uL (4.5-6.0); WHITE BLOOD COUNT (AUTO) 7.3 K/uL (4.3-11.0)
[2019-02-24 12:47] LABS: CALCIUM, SERUM 9.4 mg/dL (8.5-10.1); CARBON DIOXIDE 27 mmol/L (21-32); CHLORIDE 107 mmol/L (98-107); CREATININE 1.5 mg/dL (0.6-1.3); GLUCOSE 98 mg/dL (74-106); POTASSIUM 4.1 mmol/L (3.5-5.1); SODIUM SERUM 142 mmol/L (136-145); UREA NITROGEN, BLOOD 30 mg/dL (7-18)
[2019-02-24 13:01] LABS: ALANINE AMINOTRANSFERASE 41 U/L (12-78); ALBUMIN 3.6 g/dL (3.4-5.0); ALKALINE PHOSPHATASE 106 U/L (46-116); ASPARTATE AMINOTRANSFERASE 18 U/L (15-37); B-TYPE NATRIURETIC PEPTIDE 219 PG/ML (0-125); BILIRUBIN,DIRECT 0.1 mg/dL (0.0-0.2); BILIRUBIN,TOTAL 0.2 mg/dL (0.2-1.0); TOTAL PROTEIN, SERUM 8.2 g/dL (6.4-8.2)
--- NOTE | 2019-02-24 13:16 | NUR ---
[facility] ETA 1415 TRIP NUMBER [id number]
[2019-02-24 13:59] VITALS: BP 127/77
--- NOTE | 2019-02-24 14:15 | NUR ---
REPORT GIVEN TO EMT FOR PT TRANSFER BACK TO [facility].
== END 2019-02-24 14:16 ==
LOC: ER 12:06
DX: R07.89 Other chest pain (principal); G93.40 Encephalopathy, unspecified; I10 Essential (primary) hypertension; I12.0 Hypertensive chronic kidney disease with stage 5 chronic kidney disease or end stage renal disease; N18.6 End stage renal disease; N17.9 Acute kidney failure, unspecified; Z93.0 Tracheostomy status; Z98.890 Other specified postprocedural states
CPT/HCPCS: 36415; 71045-TC; 80048-TC; 80076-TC; 83880; 84484-TC; 85025-TC; 85730-TC

== ENCOUNTER 2019-03-05 10:25 | Inpatient (IN) | payer OTHER ==
[~2019-03-05] VITALS: Ht 177.8 cm; Wt 90.7 kg
[2019-03-05] VITALS (10 sets, daily range): BP systolic 126–166; BP diastolic 70–96
[~2019-03-05 10:25] MED LIST changes: +PROP40TA7 PO
--- NOTE | 2019-03-05 10:40 | NUR ---
BIB EMS 44 YEAR OLD MALE FROM [facility] FOR ABNORMAL LABS, LOW H&H. ALERT AND OREINTED X3, BRATHING EVEN AND UNALBORED. SKIN INTACT AND WARM TO TOUCH. NOTED WITH TRACH/COLLAR INTACT. WAITING TO BE SEEN BY
[2019-03-05 10:48] LABS: BASOPHILS # (AUTO) 0.1 /CMM (0.0-0.2); BASOPHILS % (AUTO) 0.8 % (0.0-2.0); EOSINOPHILS % (AUTO) 4.3 % (0.0-6.0); LYMPHOCYTES # (AUTO) 3.6 /CMM (0.8-4.8); LYMPHOCYTES % (AUTO) 32.1 % (20.0-44.0); MEAN CORPUSCULAR HGB CONC 34 g/dl (31.0-36.0); MEAN CORPUSCULAR VOLUME 90 fL (80-96); MONOCYTES # (AUTO) 0.8 /CMM (0.1-1.30); MONOCYTES % (AUTO) 6.8 % (2.0-12.0); NEUTROPHILS # (AUTO) 6.3 /CMM (1.8-8.9); PLATELET COUNT (AUTO) 236 /CMM (150-450); WHITE BLOOD COUNT (AUTO) 11.3 K/uL (4.3-11.0)
[2019-03-05 10:49] LABS: RED BLOOD CELL COUNT(AUTO) 1.94 MIL/uL (4.5-6.0)
[2019-03-05 10:51] LABS: HEMATOCRIT 17 % (39-51); HEMOGLOBIN 5.9 g/dL (13.5-17.5)
[2019-03-05 11:13] LABS: CALCIUM, SERUM 8.8 mg/dL (8.5-10.1); CARBON DIOXIDE 29 mmol/L (21-32); CHLORIDE 115 mmol/L (98-107); CREATININE 1.6 mg/dL (0.6-1.3); GLUCOSE 119 mg/dL (74-106); POTASSIUM 4.4 mmol/L (3.5-5.1); SODIUM SERUM 151 mmol/L (136-145); UREA NITROGEN, BLOOD 39 mg/dL (7-18)
[2019-03-05 11:19] LABS: ALANINE AMINOTRANSFERASE 56 U/L (12-78); ALBUMIN 3.3 g/dL (3.4-5.0); ALKALINE PHOSPHATASE 91 U/L (46-116); ASPARTATE AMINOTRANSFERASE 29 U/L (15-37); BILIRUBIN,DIRECT 0.1 mg/dL (0.0-0.2); BILIRUBIN,TOTAL 0.1 mg/dL (0.2-1.0); TOTAL PROTEIN, SERUM 7.1 g/dL (6.4-8.2)
[2019-03-05 11:25] LABS: BAND % (MANUAL) 2 % (0.0-5.0); EOSINOPHILS % (MANUAL) 5 % (0-4); LYMPHOCYTES % (MANUAL) 34 % (16-48); METAMYELOCYTES % 1 % (0-0); MONOCYTES % (MANUAL) 7 % (0-11.0); NEUTROPHILS % (MANUAL) 51 (42-76)
--- NOTE | 2019-03-05 12:22 | NUR ---
PAGED DR BAUGH
--- NOTE | 2019-03-05 12:31 | NUR ---
LEFT VOICEMAIL FOR [facility]
--- NOTE | 2019-03-05 12:46 | NUR ---
ROOM 108
--- NOTE | 2019-03-05 12:58 | NUR ---
URINE COLLECTED SENT TO LAB
[2019-03-05 13:02] LABS: BILIRUBIN,URINE Negative (NEGATIVE); BLOOD, URINE Trace-intact Ery/uL (NEGATIVE); COLOR,URINE Yellow (YELLOW); KETONES,URINE Negative (NEGATIVE); LEUKOCYTE ESTERASE ,URINE Negative (NEGATIVE); NITRITE, URINE Negative (NEGATIVE); PROTEIN,URINE Negative (NEGATIVE); UGLUCOSE Negative (NEGATIVE); UROBILINOGEN,URINE 0.2 EU/dL (0.2)
[2019-03-05 13:03] LABS: APPEARANCE,URINE Slightly Hazy (CLEAR)
--- NOTE | 2019-03-05 13:11 | NUR ---
REPORT GIVEN TO JESIKA FROM [facility] TO CONTINUE ANAND
[2019-03-05 13:15] LABS: BACTERIA,URINE Rare /HPF (None Seen); SQUAMOUS EPITHELIAL CELL,UR Few /HPF (None Seen); WBC,URINE 0-3 /HPF (0-3)
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
[2019-03-05] MEDS ORDERED: FUROSEMIDE 20 MG/2 ML VIAL IV ONE ×3 (14:30→20:30)
[2019-03-05] MEDS ORDERED: ACETAMINOPHEN 325 MG TABLET PO PRN (14:30)
[2019-03-05] MEDS ORDERED: CLONIDINE HCL 0.1 MG TABLET PO PRN (14:30)
--- NOTE | 2019-03-05 17:33 | NUR ---
RN NOTES 1 UNIT PRBC GIVEN NO ADVERSE REACTION NOTED. WILL ADMINISTER LASIX 20 MG PER MD ORDER
[2019-03-05] MEDS ORDERED: MAGNESIUM HYDROXIDE 30 ML UDC GT PRN (18:30)
[2019-03-05] MEDS ORDERED: ALBUTEROL FS 2.5 MG/3 ML VIAL.NEB IH PRN (18:30)
[2019-03-05] MEDS ORDERED: ACETAMINOPHEN 650 MG/20.3 ML UDC GT PRN ×2 (18:30→19:00)
[2019-03-05] MEDS ORDERED: NEPRO 1,000 ML BOTTLE GT SCH (18:30)
[2019-03-05] MEDS ORDERED: NA PHOS,M-B/NA PHOS,DI-BA 1 EA ENEMA RC PRN (18:30)
[2019-03-05] MEDS ORDERED: IPRATROPIUM NEB FS 0.5 MG/2.5 ML AMPUL.NEB IH PRN (18:30)
[2019-03-05] MEDS ORDERED: BISACODYL SUPP (10 MG) 10 MG/SUPP.RECT SUPP.RECT RC PRN (18:30)
[2019-03-05] MEDS ORDERED: IV NS 0.9% 1,000 ML IV PRN (19:30)
--- NOTE | 2019-03-05 19:40 | NUR ---
BEAN SPROUT GROWER OPENING NOTES RECEIVED PATIENT IN BED RESTING, ALERT AWAKE ORIENTED X 3, WITH PORTEX 8 TRACH WITH CAP. PATIENT ABLE TO TALK AND MAKE NEEDS KNOWN, SINUS RHYTHM ON MONITOR. WITH RAC G 18, FLUSHES WELL, SITE CLEAR. GT CLAMPED. PATIENT ABLE TO EAT. FIRST BLOOD TRANSFUSION DONE. WILL START THE NEXT AFTER F=GIVING SKIN IS INTACT. DISCOLORATIONS ONLY. ALL SAFETY MEASURES IN PLACE, BED LUCKED/ LOW, CALL LIGHT WITHIN REACH. WILL CONTINUE TO MONITOR.
[2019-03-05] MEDS: ALBUTEROL FS 2.5 MG/3 ML VIAL.NEB IH SCH (20:06)
[2019-03-05] MEDS: IPRATROPIUM NEB FS 0.5 MG/2.5 ML AMPUL.NEB IH SCH (20:06)
[2019-03-05] MEDS: PROPRANOLOL HCL 40 MG TABLET PO SCH (21:25)
[2019-03-05] MEDS: CLONIDINE HCL 0.1 MG TABLET GT SCH (21:25)
[2019-03-05] MEDS: LEVETIRACETAM SOL (5 ML) 100 MG/ML UDC GT SCH (21:26)
[2019-03-05] MEDS: DOCUSATE SODIUM LIQ 100 MG/10 ML UDC GT SCH (21:26)
[2019-03-06] MEDS ORDERED: FUROSEMIDE 20 MG/2 ML VIAL ONE (00:02)
[2019-03-06 00:47] LABS: HEMOGLOBIN 8.6 g/dL (13.5-17.5)
--- NOTE | 2019-03-06 00:52 | NUR ---
POST FRAMER NOTE, STAT HH DONE, HGB 8.6 AND HCT 25. INFORMED HOMEBOUND TEACHER WILL CONTINUE TO MONITOR.
[2019-03-06 01:00] VITALS: BP 143/94
[2019-03-06] MEDS: ALBUTEROL FS 2.5 MG/3 ML VIAL.NEB IH SCH ×4 (01:38→20:02)
[2019-03-06] MEDS: IPRATROPIUM NEB FS 0.5 MG/2.5 ML AMPUL.NEB IH SCH ×4 (01:39→20:02)
[2019-03-06] MEDS: PROPRANOLOL HCL 40 MG TABLET PO SCH ×3 (05:21→21:04)
[2019-03-06] MEDS: CLONIDINE HCL 0.1 MG TABLET GT SCH ×3 (05:22→21:05)
[2019-03-06 06:00] VITALS: BP 123/79
--- NOTE | 2019-03-06 07:12 | NUR ---
CLINICAL SYSTEMS ANALYST CLOSING NOTES PATIENT IN BED RESTING, ALERT AWAKE ORIENTED X 3, WITH PORTEX 8 TRACH WITH CAP. PATIENT ABLE TO TALK AND MAKE NEEDS KNOWN, SINUS RHYTHM ON MONITOR. WITH RAC G 18, FLUSHES WELL, SITE CLEAR. GT CLAMPED. PATIENT ABLE TO EAT. SECOND T BLOOD TRANSFUSION DONE. SKIN IS INTACT. DISCOLORATIONS ONLY. ALL SAFETY MEASURES IN PLACE, BED LUCKED/ LOW, CALL LIGHT WITHIN REACH. WILL ENDORSE THE PATIENT TO AM RN FOR ANAND
--- NOTE | 2019-03-06 07:25 | NUR ---
JAVA ORACLE DEVELOPER OPENING NOTES RECEIVED REPORT FROM PM NURSE. PATIENT IN BED SLEEPING.WITH PORTEX 8 TRACH . PATIENT ABLE TO TALK AND MAKE NEEDS KNOWN, SINUS RHYTHM ON MONITOR WITH HR 76.IV ON RAC G 18 WITH IVF ORDERED. GT CLAMPED. SAFETY MEASURES IN PLACE, BED LOCKED AND IN LOW POSITION, CALL LIGHT WITHIN REACH.BED ALARM ON .WAITING FOR MORNING LAB. WILL CONTINUE TO MONITOR.
[2019-03-06 07:41] LABS: BASOPHILS % (AUTO) 0.5 % (0.0-2.0); EOSINOPHILS % (AUTO) 3.5 % (0.0-6.0); HEMATOCRIT 26 % (39-51); HEMOGLOBIN 8.8 g/dL (13.5-17.5); LYMPHOCYTES # (AUTO) 3.6 /CMM (0.8-4.8); LYMPHOCYTES % (AUTO) 32.9 % (20.0-44.0); MEAN CORPUSCULAR HGB CONC 35 g/dl (31.0-36.0); MEAN CORPUSCULAR VOLUME 90 fL (80-96); MONOCYTES # (AUTO) 0.7 /CMM (0.1-1.30); MONOCYTES % (AUTO) 6.3 % (2.0-12.0); NEUTROPHILS # (AUTO) 6.2 /CMM (1.8-8.9); NEUTROPHILS % (AUTO) 56.8 % (43.0-81.0); PLATELET COUNT (AUTO) 210 /CMM (150-450); RED BLOOD CELL COUNT(AUTO) 2.85 MIL/uL (4.5-6.0)
[2019-03-06 08:00] VITALS: BP 112/75
[2019-03-06 08:11] VITALS: BP 112/75
[2019-03-06 08:13] LABS: CREATININE 1.9 mg/dL (0.6-1.3); POTASSIUM 4.4 mmol/L (3.5-5.1)
[2019-03-06 08:25] LABS: CALCIUM, SERUM 8.9 mg/dL (8.5-10.1)
[2019-03-06] MEDS: CHLORHEXIDINE GLUCONATE 15 ML UDC MM SCH ×2 (08:57→16:11)
[2019-03-06] MEDS: VIT B CMPLX 3/FA/VIT C/BIOTIN 1 TAB TABLET GT SCH (08:57)
[2019-03-06] MEDS: LEVETIRACETAM SOL (5 ML) 100 MG/ML UDC GT SCH ×2 (08:57→21:05)
[2019-03-06] MEDS: DOCUSATE SODIUM LIQ 100 MG/10 ML UDC GT SCH ×2 (08:57→21:04)
[2019-03-06] MEDS: LISINOPRIL (20MG) 20 MG TABLET GT SCH (08:58)
[2019-03-06] MEDS: MINOXIDIL (2.5MG) 2.5 MG TABLET GT SCH ×2 (08:59→16:11)
[2019-03-06] MEDS: AMLODIPINE BESYLATE 10 MG TABLET GT SCH (08:59)
--- NOTE | 2019-03-06 13:00 | NUR ---
SEEN BY .UPDATED PATIENT CONDITION WITH LABS.GOT NEW ORDER TO D/C IVF AND GI CONSULT.RELAYED RESULT OF US RENAL.NNO.WILL CONTINUE TO MONITOR.
[2019-03-06 14:18] LABS: APPEARANCE,URINE Clear (CLEAR); BILIRUBIN,URINE Negative (NEGATIVE); BLOOD, URINE Negative Ery/uL (NEGATIVE); COLOR,URINE Yellow (YELLOW); KETONES,URINE Negative (NEGATIVE); LEUKOCYTE ESTERASE ,URINE Negative (NEGATIVE); NITRITE, URINE Negative (NEGATIVE); PROTEIN,URINE Negative (NEGATIVE); UGLUCOSE Negative (NEGATIVE); UROBILINOGEN,URINE 0.2 EU/dL (0.2)
[2019-03-06 16:00] VITALS: BP 116/68
[2019-03-06 16:18] LABS: CREATININE, URINE 86.5 MG/DL (30.0-125.0); URINE TOTAL PROTEIN 15.5 mg/dL (0-11.9)
--- NOTE | 2019-03-06 16:21 | NUR ---
MS RN NOTE CASING SEWER SHEREE NOTIFIED ABOUT GI CONSULT.LEFT MESSAGE.
[2019-03-06 16:51] LABS: IRON, SERUM 49 ug/dl (50-175); TOTAL IRON BINDING CAPACITY 241 ug/dl (250-450)
--- NOTE | 2019-03-06 16:51 | NUR ---
MS RN NOTE SEEN BY DAVIN BENTLEY WITH NEW ORDERS.UPDATED PATIENT CONDITION WITH LABS.
[2019-03-06 17:04] LABS: FERRITIN 98 ng/mL (8-388)
[2019-03-06] MEDS: PANTOPRAZOLE 40 MG VIAL IV SCH (17:06)
[2019-03-06 17:18] LABS: EOSINOPHIL,URINE None Seen
--- NOTE | 2019-03-06 18:53 | NUR ---
MS RN CLOSING NOTES PATIENT IN BED AXOX2 WITH PERIODS OF CONFUSION.WITH PORTEX 8 TRACH .CAPPED. PATIENT ABLE TO TALK AND MAKE NEEDS KNOWN.IV ON RAC G 18 SL. GT CLAMPED. SAFETY MEASURES IN PLACE, BED LOCKED AND IN LOW POSITION, CALL LIGHT WITHIN REACH.BED ALARM ON . PER OIL BAY TECHNICIAN SHEREE TO CONTINUE PO INTAKE.NO NEED FOR GTF NOW.WILL ENDORSE TO PM NURSE FOR ANAND.
--- NOTE | 2019-03-06 19:22 | NUR ---
MS RN NOTES RECEIVED PT ON BED, A/O X 2. WITH PORTEX 8, ON ROOM AIR NO RESPIRATORY DISTRESS NOTED. IV ACCESS ON RAC G18 PATENT AND INTACT. HEAD OF BED ELEVATED. SIDE RAILS UP. CALL LIGHT WITHIN REACH. BED ALARM ON. WILL CONTINUE TO MONITOR PT CLOSELY.
[2019-03-06 20:00] VITALS: BP 128/92
[2019-03-07] MEDS: IPRATROPIUM NEB FS 0.5 MG/2.5 ML AMPUL.NEB IH SCH ×3 (01:26→15:56)
[2019-03-07] MEDS: ALBUTEROL FS 2.5 MG/3 ML VIAL.NEB IH SCH ×3 (01:26→15:57)
[2019-03-07 04:00] VITALS: BP 125/79
[2019-03-07] MEDS: PROPRANOLOL HCL 40 MG TABLET PO SCH ×2 (04:07→12:47)
[2019-03-07] MEDS: CLONIDINE HCL 0.1 MG TABLET GT SCH ×2 (04:08→12:47)
--- NOTE | 2019-03-07 07:10 | NUR ---
RN INITIAL NOTE PATIENT IN BED, ASLEEP BUT EASILY AROUSABLE TO NAME AND TOUCH. HAS TRACH, PORTEX #8 - NOT BEING USED. PATIENT IS ON ROOM AIR, SATING AT 100%. ALERT AND ORIENTED X2, FORGETFUL AT TIMES. HAS RIGHT AC #18 SL. OB STOOL STILL PENDING. BED LOCKED AND IN LOWEST POSITION. CALL LIGHT WITHIN REACH. WILL CONTINUE TO MONITOR
[2019-03-07 07:22] LABS: BASOPHILS # (AUTO) 0.1 /CMM (0.0-0.2); BASOPHILS % (AUTO) 0.6 % (0.0-2.0); EOSINOPHILS % (AUTO) 3.5 % (0.0-6.0); HEMATOCRIT 27 % (39-51); LYMPHOCYTES # (AUTO) 3.7 /CMM (0.8-4.8); LYMPHOCYTES % (AUTO) 37.1 % (20.0-44.0); MEAN CORPUSCULAR HGB CONC 34 g/dl (31.0-36.0); MEAN CORPUSCULAR VOLUME 91 fL (80-96); MONOCYTES # (AUTO) 0.7 /CMM (0.1-1.30); MONOCYTES % (AUTO) 7.2 % (2.0-12.0); NEUTROPHILS # (AUTO) 5.1 /CMM (1.8-8.9); NEUTROPHILS % (AUTO) 51.6 % (43.0-81.0); PLATELET COUNT (AUTO) 229 /CMM (150-450); RED BLOOD CELL COUNT(AUTO) 2.92 MIL/uL (4.5-6.0); WHITE BLOOD COUNT (AUTO) 9.9 K/uL (4.3-11.0)
[2019-03-07 07:23] LABS: ALBUMIN 3.3 g/dL (3.4-5.0); BILIRUBIN,TOTAL 0.2 mg/dL (0.2-1.0); CALCIUM, SERUM 8.7 mg/dL (8.5-10.1); CREATININE 1.8 mg/dL (0.6-1.3); MAGNESIUM 2.8 mg/dL (1.8-2.4); PHOSPHORUS 4.2 mg/dL (2.5-4.9); TOTAL PROTEIN, SERUM 7.2 g/dL (6.4-8.2)
--- NOTE | 2019-03-07 07:28 | NUR ---
MS RN NOTES NO ACUTE CHANGES NOTED DURING THE SHIFT. NO ACTIVE BLEEDING NOTED. NO RESPIRATORY DISTRESS NOTED. WILL ENDORSE TO THE AM NURSE FOR CONTINUITY OF CARE.
[2019-03-07 08:00] VITALS: BP 102/63
[2019-03-07] MEDS: CHLORHEXIDINE GLUCONATE 15 ML UDC MM SCH ×2 (08:36→16:03)
[2019-03-07] MEDS: LEVETIRACETAM SOL (5 ML) 100 MG/ML UDC GT SCH (08:36)
[2019-03-07] MEDS: DOCUSATE SODIUM LIQ 100 MG/10 ML UDC GT SCH (08:36)
[2019-03-07] MEDS: VIT B CMPLX 3/FA/VIT C/BIOTIN 1 TAB TABLET GT SCH (08:36)
[2019-03-07] MEDS: AMLODIPINE BESYLATE 10 MG TABLET GT SCH (08:37)
[2019-03-07] MEDS: LISINOPRIL (20MG) 20 MG TABLET GT SCH (08:38)
[2019-03-07] MEDS: MINOXIDIL (2.5MG) 2.5 MG TABLET GT SCH ×2 (08:38→17:00)
--- NOTE | 2019-03-07 08:38 | NUR ---
RN NOTE MINOXIDIL AND LISINOPRIL NOT GIVEN, PATIENT'S SBP AT 102. PATIENT AGREES TO MONITOR BP FOR NOW
[2019-03-07] MEDS ORDERED: EPOETIN ALFA (10,000 UNIT) 10,000 UNIT/ML VIAL SQ SCH (15:00)
[2019-03-07] MEDS ORDERED: NA PHOS,M-B/NA PHOS,DI-BA 1 EA ENEMA RC PRN (15:00)
--- NOTE | 2019-03-07 15:25 | NUR ---
RN NOTE REPORT GIVEN TO [facility], TALKED TO SCARLETT MEYERS. CALLED SAMPSON, PATIENT'S MOM. NO ANSWER, NO SPACE ON VOICEMAIL. TRIED CALLING LUX, PATIENT'S SISTER. SHE IS AWARE THAT PATIENT IS GOING BACK TO [facility]
--- NOTE | 2019-03-07 15:58 | NUR ---
RN NOTE SHEREE. ARTIFICIAL LIMB FITTER AT BEDSIDE. AWARE THAT PATIENT HAD 1X BM THIS MORNING. SOFT BROWN STOOL, MEDIUM AMOUNT. PER SHEREE, DO ENEMA BEFORE PATIENT GOES BACK TO SNF
[2019-03-07 16:00] VITALS: BP 105/71
[2019-03-07] MEDS: PANTOPRAZOLE 40 MG VIAL IV SCH (16:59)
[2019-03-07 17:00] VITALS: BP 102/70
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
[2019-03-07] MEDS ORDERED: POLYETHYLENE GLYCOL 3350 17 GM POWD.PACK PO SCH (22:00)
[2019-03-08 11:07] LABS: *SPE ALBUMIN 3.5 g/dL (2.9-4.4); *SPE ALPHA-1-GLOBULIN 0.2 g/dL (0.0-0.4); *SPE ALPHA-2-GLOBULIN 0.8 g/dL (0.4-1.0); *SPE BETA GLOBULIN 1.1 g/dL (0.7-1.3); *SPE GLOBULIN, TOTAL 3.6 g/dL (2.2-3.9); *SPE M-SPIKE Not Observed g/dL (Not Observed); *SPEGAMMA GLOBULIN 1.4 g/dL (0.4-1.8); PTH, INTACT 40 pg/mL (15-65)
== END 2019-03-07 17:40 | DRG 470 ==
LOC: ER 10:31 → MEDSG1 13:08 → TELE1 14:35 → MEDSG1 03-06 11:01
PROVIDERS: ADMIT Family Medicine; ATTEND Legal Medicine
PROC: 30233N1 Transfusion of Nonautologous Red Blood Cells into Peripheral Vein, Percutaneous Approach (ICD-10-PCS; principal; 2019-03-05)
DX: I12.0 Hypertensive chronic kidney disease with stage 5 chronic kidney disease or end stage renal disease (principal); N17.0 Acute kidney failure with tubular necrosis; G93.40 Encephalopathy, unspecified; J96.10 Chronic respiratory failure, unspecified whether with hypoxia or hypercapnia; Z93.0 Tracheostomy status; D64.9 Anemia, unspecified; E87.0 Hyperosmolality and hypernatremia; Z99.2 Dependence on renal dialysis; E78.5 Hyperlipidemia, unspecified; E86.1 Hypovolemia; G40.909 Epilepsy, unspecified, not intractable, without status epilepticus; N18.6 End stage renal disease; G81.91 Hemiplegia, unspecified affecting right dominant side; L89.90 Pressure ulcer of unspecified site, unspecified stage; Z79.51 Long term (current) use of inhaled steroids; Z79.899 Other long term (current) drug therapy; D63.1 Anemia in chronic kidney disease; Z93.1 Gastrostomy status; K56.41 Fecal impaction; K92.2 Gastrointestinal hemorrhage, unspecified
CPT/HCPCS: 36415; 71045-TC; 76770-TC; 80048-TC; 80053-TC; 80076-TC; 81000-TC; 82550-TC; 82570-TC; 82728-TC; 83540-TC; 83605-TC; 83735-TC; 83970; 84100-TC; 84155; 84155-TC; 84165; 84300-TC; 84484-TC; 85025-TC; 85027-TC; 85730-TC; 86850-TC; 86921-TC; 87040-TC; 87081-TC; 87086-TC; A7526; C9113; G0378; J0885; J1940; J1953; J7030; J7050; P9016-BL

== ENCOUNTER 2020-07-05 08:48 | Emergency (ER) | payer OTHER ==
[~2020-07-05] VITALS: Ht 182.9 cm; Wt 98.0 kg
[~2020-07-05 08:48] MED LIST changes: -ACET160L33 GT; +ACET160L44 GT; +AMLO-213 GT; -AMLO10TA7 GT; +LISI40TA13 GT; -LISI40TA4 GT
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
--- NOTE | 2020-07-05 08:54 | NUR ---
SEEN AND EXAMINED BY .
--- NOTE | 2020-07-05 09:12 | NUR ---
PT IS WHEELED TO CT SCAN VIA [facility].
--- NOTE | 2020-07-05 10:06 | NUR ---
SPOKED TO SCARLETT [facility] OF [facility] FOR REPORT.
--- NOTE | 2020-07-05 10:07 | NUR ---
CALLED [facility] ETA 45 MINS
--- NOTE | 2020-07-05 11:09 | NUR ---
Patient discharged to home in stable condition. Written and verbal after care instructions given. Patient verbalizes understanding of instruction.
--- NOTE | 2020-07-05 11:25 | NUR ---
Amirah, pt's sister updated regarding pt and aware that pt is clear to go back to his facility.
[2020-07-05 11:33] VITALS: BP 150/84
--- NOTE | 2020-07-05 11:33 | NUR ---
SPOKED TO SACRLETT POOLE [facility] FOR PT TRANSFER BACK.
[2020-07-05] MEDS ORDERED: FOLI0.8T2 GT (13:45)
[2020-07-05] MEDS ORDERED: SENN-18 GT (13:45)
[2020-07-05] MEDS ORDERED: PROP40TA7 GT (13:45)
[2020-07-05] MEDS ORDERED: OMEP20TA20 GT (13:45)
[2020-07-05] MEDS ORDERED: ENOX40DI SQ (13:45)
== END 2020-07-05 11:34 | disposition home or self-care (01) ==
LOC: ER 08:51
DX: S09.8XXA Other specified injuries of head, initial encounter (principal); I12.0 Hypertensive chronic kidney disease with stage 5 chronic kidney disease or end stage renal disease; N18.6 End stage renal disease; D63.1 Anemia in chronic kidney disease; Z93.1 Gastrostomy status; Z79.899 Other long term (current) drug therapy; W18.39XA Other fall on same level, initial encounter; Y93.89 Activity, other specified; Y92.89 Other specified places as the place of occurrence of the external cause; Y99.8 Other external cause status
CPT/HCPCS: 70450-TC

== ENCOUNTER 2020-07-05 12:44 | Inpatient (IN) | payer OTHER ==
[~2020-07-05] VITALS: Ht 185.4 cm; Wt 98.0 kg
--- NOTE | 2020-07-05 12:44 | NUR ---
ALLI FROM [facility] "SENT BACK FOR HIGH BP." TO ER BED 9, HOOEKD TO MONITOR. CHANGED TO HOSP GOWN, WARM BLANKET PROVIDED, PATIENT AAO x 3. BREATHING EVEN AND UNLABORED. NOTED W TRACHEOSTOMY, AWAITING MD LINARES
--- NOTE | 2020-07-05 12:48 | NUR ---
DR JOSEPH AT BEDSIDE
[2020-07-05 13:10] LABS: BASOPHILS # (AUTO) 0.1 /CMM (0.0-0.2); BASOPHILS % (AUTO) 0.7 % (0.0-2.0); EOSINOPHILS % (AUTO) 2.7 % (0.0-6.0); HEMATOCRIT 43 % (39-51); HEMOGLOBIN 14.5 g/dL (13.5-17.5); LYMPHOCYTES # (AUTO) 2.6 /CMM (0.8-4.8); LYMPHOCYTES % (AUTO) 32.4 % (20.0-44.0); MEAN CORPUSCULAR HGB CONC 34 g/dl (31.0-36.0); MEAN CORPUSCULAR VOLUME 85 fL (80-96); MONOCYTES # (AUTO) 0.6 /CMM (0.1-1.30); MONOCYTES % (AUTO) 7.2 % (2.0-12.0); NEUTROPHILS # (AUTO) 4.5 /CMM (1.8-8.9); PLATELET COUNT (AUTO) 180 /CMM (150-450); RED BLOOD CELL COUNT(AUTO) 5.11 MIL/uL (4.5-6.0)
[2020-07-05 13:22] LABS: CALCIUM, SERUM 9.6 mg/dL (8.5-10.1); CREATININE 1.6 mg/dL (0.6-1.3); POTASSIUM 4.1 mmol/L (3.5-5.1)
--- NOTE | 2020-07-05 13:22 | NUR ---
RAPID AND PCR COVID SWAB DONE AND SENT TO LAB
[2020-07-05] MEDS ORDERED: SENN-18 GT (13:45)
[2020-07-05] MEDS ORDERED: OMEP20TA20 GT (13:45)
[2020-07-05] MEDS ORDERED: ENOX40DI SQ (13:45)
[2020-07-05] MEDS ORDERED: FOLI0.8T2 GT (13:45)
[2020-07-05] MEDS ORDERED: PROP40TA7 GT (13:45)
[2020-07-05] MEDS ORDERED: BISACODYL SUPP (10 MG) 10 MG/SUPP.RECT SUPP.RECT RC PRN (15:00)
[2020-07-05] MEDS ORDERED: ACETAMINOPHEN 160 MG/5 ML GT PRN (15:00)
[2020-07-05] MEDS ORDERED: IPRATROPIUM NEB FS 0.5 MG/2.5 ML AMPUL.NEB IH PRN (15:00)
[2020-07-05] MEDS ORDERED: NA PHOS,M-B/NA PHOS,DI-BA 1 EA ENEMA RC PRN (15:00)
[2020-07-05] MEDS ORDERED: MAGNESIUM HYDROXIDE 30 ML UDC GT PRN (15:00)
[2020-07-05] MEDS ORDERED: ALBUTEROL FS 2.5 MG/3 ML VIAL.NEB IH PRN (15:00)
[2020-07-05] MEDS: CLONIDINE HCL 0.1 MG TABLET PO SCH ×2 (15:42→21:26)
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
--- NOTE | 2020-07-05 16:16 | NUR ---
called [employer] in behalf of patient. spoke to animation camera operator [phone]. incident # [id number]. awaiting Pd dispatch.
[2020-07-05] MEDS ORDERED: MINOXIDIL (2.5MG) 2.5 MG TABLET GT SCH (17:00)
--- NOTE | 2020-07-05 18:18 | NUR ---
PATIENT SERVED WITH DINNER TRAY, TOLERATING PO WELL.
--- NOTE | 2020-07-05 19:03 | NUR ---
REPORT GIVEN TO GAVINO APNTOJA FOR ANAND
--- NOTE | 2020-07-05 19:18 | NUR ---
PT AAOX4, NOT IN RESPIRATORY DISTRESS. PT HAS NO MEDICAL COMPLAINTS AT THIS TIME. VSS. WILL CONTINUE TO MONITOR PT.
[2020-07-05] MEDS: IPRATROPIUM NEB FS 0.5 MG/2.5 ML AMPUL.NEB IH SCH (19:30)
[2020-07-05] MEDS: ALBUTEROL FS 2.5 MG/3 ML VIAL.NEB IH SCH (19:30)
--- NOTE | 2020-07-05 19:46 | NUR ---
RT CALLED FOR BREATHING TX
--- NOTE | 2020-07-05 20:02 | NUR ---
[employer] AT BEDSIDE
[2020-07-05] MEDS ORDERED: IPRATROPIUM NEB FS 0.5 MG/2.5 ML AMPUL.NEB ONE (20:08)
[2020-07-05] MEDS ORDERED: ALBUTEROL FS 2.5 MG/3 ML VIAL.NEB ONE (20:08)
--- NOTE | 2020-07-05 20:33 | NUR ---
RT AT BEDSIDE FOR BREATHING TX
[2020-07-05] MEDS ORDERED: PROPRANOLOL HCL 40 MG TABLET ONE (21:09)
[2020-07-05] MEDS ORDERED: LEVETIRACETAM SOL (5 ML) 100 MG/ML UDC ONE (21:10)
[2020-07-05] MEDS ORDERED: CLONIDINE HCL 0.1 MG TABLET ONE (21:12)
[2020-07-05] MEDS: LEVETIRACETAM SOL (5 ML) 100 MG/ML UDC GT SCH (21:26)
[2020-07-05] MEDS: PROPRANOLOL HCL 40 MG TABLET GT SCH (21:27)
[2020-07-06] MEDS ORDERED: IPRATROPIUM NEB FS 0.5 MG/2.5 ML AMPUL.NEB ONE ×4 (01:32→19:45)
[2020-07-06] MEDS ORDERED: ALBUTEROL FS 2.5 MG/3 ML VIAL.NEB ONE ×2 (01:32→19:45)
[2020-07-06] MEDS: IPRATROPIUM NEB FS 0.5 MG/2.5 ML AMPUL.NEB IH SCH ×4 (01:34→19:49)
[2020-07-06] MEDS: ALBUTEROL FS 2.5 MG/3 ML VIAL.NEB IH SCH ×4 (01:34→19:49)
--- NOTE | 2020-07-06 02:34 | NUR ---
PT CLEANED AND CHANGED.
[2020-07-06] MEDS ORDERED: CLONIDINE HCL 0.1 MG TABLET ONE ×2 (05:06→20:48)
[2020-07-06] MEDS: CLONIDINE HCL 0.1 MG TABLET PO SCH ×3 (05:11→21:30)
--- NOTE | 2020-07-06 05:53 | NUR ---
PT'S SISTER LUX GE,
--- NOTE | 2020-07-06 07:25 | NUR ---
REPORT GIVEN TO SCARLETT LEPE FOR ANAND
[2020-07-06] MEDS ORDERED: ALBUTEROL FS 2.5 MG/0.5 ML VIAL.NEB ONE ×2 (07:37→13:40)
--- NOTE | 2020-07-06 07:41 | NUR ---
RT AT BEDSIDE FOR BREATHING TX
[2020-07-06] MEDS: PROPRANOLOL HCL 40 MG TABLET GT SCH ×2 (08:15→21:29)
[2020-07-06] MEDS ORDERED: ENOXAPARIN SODIUM 40 MG/0.4 ML DISP.SYRIN SQ ONE (08:17)
[2020-07-06] MEDS ORDERED: AMLODIPINE BESYLATE 10 MG TABLET ONE (08:18)
[2020-07-06] MEDS: AMLODIPINE BESYLATE 10 MG TABLET GT SCH (09:07)
[2020-07-06] MEDS: LEVETIRACETAM SOL (5 ML) 100 MG/ML UDC GT SCH ×2 (09:07→21:29)
[2020-07-06] MEDS: SENNOSIDES 8.6 MG TABLET GT SCH (09:07)
[2020-07-06] MEDS: ENOXAPARIN SODIUM 40 MG/0.4 ML DISP.SYRIN SQ SCH (09:08)
--- NOTE | 2020-07-06 12:12 | NUR ---
PATIENT SERVED LUNCH TRAY, TOLERATED WELL. ATE 80% OF FOOD
--- NOTE | 2020-07-06 16:46 | NUR ---
PATIENT CLEANED, CHANGED TO NEW LINEN AND HOSP GOWN.
--- NOTE | 2020-07-06 17:32 | NUR ---
PATIENT SERVED DINNER TRAY. TOLERATED PO WELL. ATE 90% OF FOOD.
--- NOTE | 2020-07-06 19:08 | NUR ---
PATIENT IN BED AWAKE, HOOKED TO MONITOR. KEPT WARM AND COMFORTABLE. WILL CONTINUE TO MONITOR ACCORDINGLY
--- NOTE | 2020-07-06 19:18 | NUR ---
REPORT GIVEN TO CORRINA PANTOJA FOR ANAND
--- NOTE | 2020-07-06 19:45 | NUR ---
RT AT BEDSIDE FOR BREATHING TREATMENT
--- NOTE | 2020-07-06 20:56 | NUR ---
MEDICATION UNAVAILABLE IN ER. MEDICATION, INDERAL AND KEPPRA ORDERS HANDED TO WINDOW DRESSER FOR REFILL.
[2020-07-06] MEDS ORDERED: LEVETIRACETAM SOL (5 ML) 100 MG/ML UDC ONE (21:19)
[2020-07-06] MEDS ORDERED: PROPRANOLOL HCL 10 MG TABLET ONE (21:21)
--- NOTE | 2020-07-07 00:34 | NUR ---
PATIENT IS SLEEPING. EASILY AROUSABLE THROUGH VOICE. BREATHING EVENLY AND UNLABORED ON ROOM AIR. PATIENT IS CONNECTED TO THE ORTHOPEDIC RN. BED AT THE LOWEST POSITION. CALL LIGHT WITHIN REACH. BLANKET FOR COMFORT. WILL CONITINUE TO MONITOR PATIENT CLOSELY.
[2020-07-07] MEDS ORDERED: ALBUTEROL FS 2.5 MG/3 ML VIAL.NEB ONE (01:11)
[2020-07-07] MEDS ORDERED: IPRATROPIUM NEB FS 0.5 MG/2.5 ML AMPUL.NEB ONE (01:11)
[2020-07-07] MEDS: IPRATROPIUM NEB FS 0.5 MG/2.5 ML AMPUL.NEB IH SCH ×4 (01:14→20:00)
[2020-07-07] MEDS: ALBUTEROL FS 2.5 MG/3 ML VIAL.NEB IH SCH ×4 (01:14→20:01)
--- NOTE | 2020-07-07 04:01 | NUR ---
PATIENT GIVEN CLEAN GOWNS AND CLEAN SHEETS. PROVIDED PERICARE FOR THE PATIENT.
[2020-07-07] MEDS ORDERED: CLONIDINE HCL 0.1 MG TABLET ONE (05:03)
[2020-07-07] MEDS: CLONIDINE HCL 0.1 MG TABLET PO SCH ×3 (05:05→22:25)
--- NOTE | 2020-07-07 05:31 | NUR ---
PATIENT CLEANED, PROVIDED PERICARE. PATIENT DENIES ANY COMPLAINT AT THIS TIME. BREATHING EVENLY AND UNLABORED ON ROOM AIR. CALL LIGHT IS WITHIN REACH. WILL CONTINUE TO MONITOR PATIENT REALLY CLOSELY.
--- NOTE | 2020-07-07 07:45 | NUR ---
REPORT GIVEN TO ANA LILIA RN FOR ANAND.
--- NOTE | 2020-07-07 08:14 | NUR ---
pt transfered to via [facility] with rn and emt.
[2020-07-07 08:45] VITALS: BP 138/87
[2020-07-07] MEDS: ENOXAPARIN SODIUM 40 MG/0.4 ML DISP.SYRIN SQ SCH (09:53)
[2020-07-07] MEDS: LEVETIRACETAM SOL (5 ML) 100 MG/ML UDC GT SCH ×2 (09:54→22:23)
[2020-07-07] MEDS: AMLODIPINE BESYLATE 10 MG TABLET GT SCH (09:54)
[2020-07-07] MEDS: SENNOSIDES 8.6 MG TABLET GT SCH (09:54)
[2020-07-07] MEDS: PROPRANOLOL HCL 40 MG TABLET GT SCH ×2 (09:55→21:00)
[2020-07-07 16:00] VITALS: BP 148/91
--- NOTE | 2020-07-07 18:12 | NUR ---
MS RN CLOSING NOTE NEW ADMIT. PT LAYING IN BED. SEMI FOWLERS. ALERT AND ORIENTED X4. NO SIGNS OF PAIN AT THE MOMENT. SKIN INTACT, NO SIGNS OF POOR CIRCULATION. IV ACCESS RIGHT HAND. INTACT, PATENT, FLUSHES WELL. BED LOCKED AND IN LOWEST POSITION. SIDE RAILS UP X3. CALL LIGHT WITHIN REACH. WILL CONTINUE TO MONITOR.
[2020-07-07 20:00] VITALS: BP 132/85
[2020-07-08] MEDS: ALBUTEROL FS 2.5 MG/3 ML VIAL.NEB IH SCH ×4 (01:30→20:11)
[2020-07-08] MEDS: IPRATROPIUM NEB FS 0.5 MG/2.5 ML AMPUL.NEB IH SCH ×4 (01:30→20:12)
[2020-07-08] MEDS: CLONIDINE HCL 0.1 MG TABLET PO SCH ×3 (05:00→21:09)
[2020-07-08 06:15] VITALS: BP 146/88
--- NOTE | 2020-07-08 07:25 | NUR ---
MS RN NOTES RECEIVED PATIENT IN BED ALERT ORIENTED X 2-3. NO ACUTE DISTRESS NOTED. BREATHING UNLABORED. NO SOB NOTED. IV ACCESS PATENT AND INTACT, NO REDNESS, NO SWELLING NOTED. SAFETY MEASURES IN PLACE. CALL LIGHT WITHIN REACH. WILL CONTINUE TO MONITOR ACCORDINGLY.
[2020-07-08 08:00] VITALS: BP 147/99
[2020-07-08 08:59] LABS: BASOPHILS # (AUTO) 0.1 /CMM (0.0-0.2); BASOPHILS % (AUTO) 0.9 % (0.0-2.0); CALCIUM, SERUM 9.4 mg/dL (8.5-10.1); CREATININE 1.5 mg/dL (0.6-1.3); HEMATOCRIT 42 % (39-51); HEMOGLOBIN 14.2 g/dL (13.5-17.5); LYMPHOCYTES # (AUTO) 3.4 /CMM (0.8-4.8); LYMPHOCYTES % (AUTO) 40.2 % (20.0-44.0); MEAN CORPUSCULAR HGB CONC 34 g/dl (31.0-36.0); MEAN CORPUSCULAR VOLUME 85 fL (80-96); MONOCYTES # (AUTO) 0.6 /CMM (0.1-1.30); NEUTROPHILS # (AUTO) 4.1 /CMM (1.8-8.9); NEUTROPHILS % (AUTO) 48.9 % (43.0-81.0); PLATELET COUNT (AUTO) 168 /CMM (150-450); POTASSIUM 4.1 mmol/L (3.5-5.1); RED BLOOD CELL COUNT(AUTO) 4.98 MIL/uL (4.5-6.0); WHITE BLOOD COUNT (AUTO) 8.4 K/uL (4.3-11.0)
[2020-07-08] MEDS: PROPRANOLOL HCL 40 MG TABLET GT SCH ×2 (09:00→21:08)
[2020-07-08] MEDS: SENNOSIDES 8.6 MG TABLET GT SCH (09:21)
[2020-07-08] MEDS: LEVETIRACETAM SOL (5 ML) 100 MG/ML UDC GT SCH ×2 (09:21→21:09)
[2020-07-08] MEDS: AMLODIPINE BESYLATE 10 MG TABLET GT SCH (09:23)
[2020-07-08] MEDS: ENOXAPARIN SODIUM 40 MG/0.4 ML DISP.SYRIN SQ SCH (09:25)
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
--- NOTE | 2020-07-08 14:20 | NUR ---
[facility] Contact: WILLIAM called the [facility] office ([phone]) for a second time today to file a report and left a voicemail. WILLIAM will follow up again the following day or wait for a call back.
[2020-07-08 16:00] VITALS: BP 135/97
--- NOTE | 2020-07-08 18:55 | NUR ---
MS RN NOTES PATIENT IN BED ALERT ORIENTED X 2. NO ACUTE DISTRESS NOTED. BREATHING UNLABORED. NO SOB NOTED. IV ACCESS PATENT AND INTACT, NO REDNESS, NO SWELLING NOTED. NEEDS ATTENDED AND ANTICIPATED. KEPT, CLEAN DRY AND COMFORTABLE. SAFETY MEASURES IN PLACE. CALL LIGHT WITHIN REACH. WILL ENDORSE TO NIGHT NURSE FOR CONTINUITY OF CARE.
--- NOTE | 2020-07-08 20:00 | NUR ---
ms eldon initial notes received report from am nurse and seen pt in bed awake and alert on sitting position watching TV at this time. denies any pain or any discomfort. Patient concern at this time is where he's going after he will be discharge. he told me that he doesn't want to go back from the facility that he had before admission. I told him that pillowcase maker and social media community manager are the one that looking for the placement and they will notify his family as well. kept him warm and comfortable at all times. will continue monitoring. place call light at reach.
[2020-07-08 20:47] VITALS: BP 133/90
[2020-07-09] VITALS (8 sets, daily range): BP systolic 136–155; BP diastolic 82–99
--- NOTE | 2020-07-09 | NUR ---
ms eldon notes pt sleeping comfortably in bed without any distress noted. kept him warm and comfortable at all times. place call light at reach.
[2020-07-09] MEDS: IPRATROPIUM NEB FS 0.5 MG/2.5 ML AMPUL.NEB IH SCH ×4 (02:07→20:49)
[2020-07-09] MEDS: ALBUTEROL FS 2.5 MG/3 ML VIAL.NEB IH SCH ×4 (02:07→20:49)
[2020-07-09] MEDS: CLONIDINE HCL 0.1 MG TABLET PO SCH ×3 (05:15→21:47)
--- NOTE | 2020-07-09 07:34 | NUR ---
ASSISTANT TO THE CEO OPENING NOTES RECEIVED PATIENT IN BED AWAKE, A/O X3. ABLE TO MAKE NEEDS KNOWN, DENIES PAIN OR ANY DISCOMFORTS AT THIS TIME. PT WITH TRACH CAPPED AND ON ROOM AIR, TOLERATING WELL, BREATHING EVEN AND UNLABORED. IV SL ON RIGHT HAND G#20 INTACT AND PATENT. SAFETY MEASURES IN PLACE: BED IS LOW AND LOCKED, SIDE RAILS UP X2, BED ALARM ON AND CALL LIGHT WITHIN REACH. WILL CONTINUE TO MONITOR. Addendum: 07/09/20 at 1847 by POLINA CORDOVA RN CORRECTION: PT NOT ON TELE BUT MS
--- NOTE | 2020-07-09 07:40 | NUR ---
MS DELIVERY MANAGER CLOSING NOTES PT AWAKE AND ALERT STABLE [place] THE NIGHT AND SLEPT WELL. NO SIGNS OF ANY ACUTE DISTRESS OR ANY DISCOMFORT. ALL DUE MEDS GIVEN AND ALL NEEDS MET. HE STILL WORRIED ABOUT THE PLACE THAT HE CAN STAY AFTER DISCHARGE. ENDORSE TO AM NURSE SUNNY REGARDING PT CONCERN. KEPT HIM WARM AND COMFORTABLE AT ALL TIMES. PLACE CALL LIGHT AT REACH.
[2020-07-09 08:01] LABS: BASOPHILS % (AUTO) 0.4 % (0.0-2.0); EOSINOPHILS % (AUTO) 2.8 % (0.0-6.0); HEMATOCRIT 43 % (39-51); HEMOGLOBIN 14.5 g/dL (13.5-17.5); LYMPHOCYTES # (AUTO) 2.6 /CMM (0.8-4.8); LYMPHOCYTES % (AUTO) 37.1 % (20.0-44.0); MEAN CORPUSCULAR HGB CONC 34 g/dl (31.0-36.0); MEAN CORPUSCULAR VOLUME 85 fL (80-96); MONOCYTES # (AUTO) 0.7 /CMM (0.1-1.30); MONOCYTES % (AUTO) 9.6 % (2.0-12.0); NEUTROPHILS # (AUTO) 3.5 /CMM (1.8-8.9); NEUTROPHILS % (AUTO) 50.1 % (43.0-81.0); PLATELET COUNT (AUTO) 161 /CMM (150-450); RED BLOOD CELL COUNT(AUTO) 5.03 MIL/uL (4.5-6.0); WHITE BLOOD COUNT (AUTO) 7.1 K/uL (4.3-11.0)
[2020-07-09 08:23] LABS: CALCIUM, SERUM 8.9 mg/dL (8.5-10.1); CREATININE 1.3 mg/dL (0.6-1.3); POTASSIUM 3.9 mmol/L (3.5-5.1)
[2020-07-09] MEDS: PROPRANOLOL HCL 40 MG TABLET GT SCH ×2 (08:44→21:47)
[2020-07-09] MEDS: SENNOSIDES 8.6 MG TABLET GT SCH (08:44)
[2020-07-09] MEDS: LEVETIRACETAM SOL (5 ML) 100 MG/ML UDC GT SCH ×2 (08:44→21:46)
[2020-07-09] MEDS: AMLODIPINE BESYLATE 10 MG TABLET GT SCH (08:45)
[2020-07-09] MEDS: ENOXAPARIN SODIUM 40 MG/0.4 ML DISP.SYRIN SQ SCH (08:47)
--- NOTE | 2020-07-09 18:42 | NUR ---
MS RN CLOSING NOTES PATIENT IN BED AWAKE AT THIS TIME. HOB ELEVATED. A/O X2-3. ABLE TO MAKE NEEDS KNOWN. PT WITH TRACH CAPPED AND ON ROOM AIR, TOLERATING WELL WITH NO SOB NOTED DURING THE DAY. IV SL ON RIGHT HAND G#20 INTACT, PATENT AND FLUSHES WELL. ALL NEEDS AND CARE ATTENDED WELL. SAFETY MEASURES KEPT IN PLACE: BED IS LOW AND LOCKED, SIDE RAILS UP X2, BED ALARM ON AND CALL LIGHT WITHIN REACH. WILL ENDORSE TO TEST CONSULTANT NURSE FOR ANAND.
--- NOTE | 2020-07-09 19:30 | NUR ---
ms eldon initial notes seen pt after got report from am nurse , he's awake and alert watching TV at this time. denies any pain or any discomfort. He' still concern regarding the place that he can go after discharge. I spoke to him that accdg to am nurse the nurse case management still looking for a place for him . he understood well. kept him comfortable at all times. Encourage him to used the call light if he needs some help. place call light at reach.
[2020-07-10] MEDS: IPRATROPIUM NEB FS 0.5 MG/2.5 ML AMPUL.NEB IH SCH ×3 (01:30→13:50)
[2020-07-10] MEDS: ALBUTEROL FS 2.5 MG/3 ML VIAL.NEB IH SCH ×3 (01:30→13:50)
[2020-07-10] MEDS: CLONIDINE HCL 0.1 MG TABLET PO SCH ×2 (06:19→13:15)
[2020-07-10 06:56] LABS: BASOPHILS # (AUTO) 0.1 /CMM (0.0-0.2); BASOPHILS % (AUTO) 0.8 % (0.0-2.0); HEMATOCRIT 45 % (39-51); HEMOGLOBIN 15.2 g/dL (13.5-17.5); LYMPHOCYTES % (AUTO) 41.9 % (20.0-44.0); MEAN CORPUSCULAR HGB CONC 34 g/dl (31.0-36.0); MEAN CORPUSCULAR VOLUME 84 fL (80-96); MONOCYTES # (AUTO) 0.6 /CMM (0.1-1.30); MONOCYTES % (AUTO) 8.6 % (2.0-12.0); NEUTROPHILS # (AUTO) 3.3 /CMM (1.8-8.9); NEUTROPHILS % (AUTO) 45.7 % (43.0-81.0); PLATELET COUNT (AUTO) 145 /CMM (150-450); RED BLOOD CELL COUNT(AUTO) 5.29 MIL/uL (4.5-6.0); WHITE BLOOD COUNT (AUTO) 7.2 K/uL (4.3-11.0)
--- NOTE | 2020-07-10 07:15 | NUR ---
RN OPENING NOTES PATIENT RECEIVED IN BED AWAKE AT THIS TIME. HOB ELEVATED. A/O X2-3. ABLE TO MAKE NEEDS KNOWN. PT WITH TRACH CAPPED AND ON ROOM AIR, TOLERATING WELL WITH NO SOB NOTED DURING THE DAY. IV SL ON RIGHT HAND G#20 INTACT AND PATENT. IV FLUSHES WELL. SAFETY MEASURES IMPLEMENTED, BED IN LOWEST POSITION AND LOCKED, SIDE RAILS UP X2, BED ALARM ON, AND CALL LIGHT WITHIN REACH. WILL CONTINUE TO MONITOR CLIENT AND PROVIDE CARE THROUGHOUT SHIFT.
[2020-07-10 07:16] LABS: CALCIUM, SERUM 9.6 mg/dL (8.5-10.1); CREATININE 1.3 mg/dL (0.6-1.3)
--- NOTE | 2020-07-10 07:43 | NUR ---
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 he seems comfortable and happy now after he got bowel movement. denies any pain or any discomfort. all due meds given and all needs met. kept him warm and comfortable at all times. will endorse to am nurse.
[2020-07-10] MEDS ORDERED: HYDR-4075 PO (08:07)
[2020-07-10 08:34] VITALS: BP 145/107
[2020-07-10] MEDS: LEVETIRACETAM SOL (5 ML) 100 MG/ML UDC GT SCH (08:35)
[2020-07-10] MEDS: SENNOSIDES 8.6 MG TABLET GT SCH (08:35)
[2020-07-10] MEDS: AMLODIPINE BESYLATE 10 MG TABLET GT SCH (08:36)
[2020-07-10] MEDS: PROPRANOLOL HCL 40 MG TABLET GT SCH (08:37)
[2020-07-10] MEDS: ENOXAPARIN SODIUM 40 MG/0.4 ML DISP.SYRIN SQ SCH (08:40)
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
[2020-07-10 16:01] VITALS: BP 134/101
--- NOTE | 2020-07-10 16:17 | NUR ---
PATIENT DISCHARGE TO NURSING FACILITY, [facility]. PATIENT CARE TRANSFERRED OVER TO TRANSPORTATION. PATIENT IN STABLE CONDITION UPON DISCHARGE. ALL NEEDS MET. PAPERWORK GIVEN TO TRANSPORTATION. REPORT GIVEN TO EDMAR AT [facility].
== END 2020-07-10 16:20 | DRG 199 ==
LOC: ER 12:47 → TRANSITION 15:26 → OBSVTOIN 15:26 → TELE 07-07 04:40 → MED 07-07 11:37
PROVIDERS: ATTEND Family Medicine
DX: I16.0 Hypertensive urgency (principal); I12.9 Hypertensive chronic kidney disease with stage 1 through stage 4 chronic kidney disease, or unspecified chronic kidney disease; N17.0 Acute kidney failure with tubular necrosis; J96.10 Chronic respiratory failure, unspecified whether with hypoxia or hypercapnia; N18.9 Chronic kidney disease, unspecified; Z20.822 Contact with and (suspected) exposure to COVID-19; R13.10 Dysphagia, unspecified; L89.90 Pressure ulcer of unspecified site, unspecified stage; Z87.820 Personal history of traumatic brain injury; E78.5 Hyperlipidemia, unspecified; G81.91 Hemiplegia, unspecified affecting right dominant side; Z98.890 Other specified postprocedural states; Z93.1 Gastrostomy status; W18.30XA Fall on same level, unspecified, initial encounter; Y92.129 Unspecified place in nursing home as the place of occurrence of the external cause; Z93.0 Tracheostomy status; N13.9 Obstructive and reflux uropathy, unspecified; D63.8 Anemia in other chronic diseases classified elsewhere; T76.11XA Adult physical abuse, suspected, initial encounter
CPT/HCPCS: 36415; 71045-TC; 80048-TC; 85025-TC; 87081-TC; 94799-TC; C9803; G0378; J1650; J1953; U0003

== ENCOUNTER 2023-09-24 18:56 | Inpatient (IN) | payer OTHER ==
[~2023-09-24] VITALS: Ht 177.8 cm; Wt 110.2 kg
[~2023-09-24 18:56] MED LIST changes: -AMLO-213 GT; +AMLO-213 PO; -CHLO473M3 MM; -DOCU50LI GT; +ENOX40DI SQ; -EPOE1VIA6 SQ; +FOLI0.8T2 PO; +HYDR-4075 PO; -LISI40TA13 GT; -NUT.237L67 GT; +OMEP20TA20 PO; +PROP40TA7 GT; -PROP40TA7 PO; +SENN-18 GT
[2023-09-24] MEDS: ACETAMINOPHEN ES 500 MG TABLET PO ONE (22:26)
[2023-09-24] MEDS ORDERED: ACETAMINOPHEN ES 500 MG TABLET ONE (22:26)
[2023-09-24 23:45] VITALS: O2SAT 96
[2023-09-24] MEDS ORDERED: RITO100T PO (23:49)
[2023-09-24] MEDS: IV NS 0.9% 1,000 ML BAG IV ONE (23:52)
[2023-09-25] VITALS (7 sets, daily range): BP systolic 118; BP diastolic 62; TEMP 101.3; O2SAT 96–100
[2023-09-25] MEDS ORDERED: CEFTRIAXONE 1GM BAG (ER ONLY) 50 ML IV ONE (03:47)
[2023-09-25 03:48] LABS: BASOPHILS # (AUTO) 0.1 K/uL (0.0-0.2); BASOPHILS % (AUTO) 1.6 % (0.0-2.0); EOSINOPHILS # (AUTO) 0.1 K/uL (0.0-0.7); EOSINOPHILS % (AUTO) 0.9 % (0.0-6.0); HEMATOCRIT 37 % (39-51); HEMOGLOBIN 12.5 g/dL (13.5-17.5); LYMPHOCYTES # (AUTO) 1.9 K/uL (0.8-4.8); MEAN CORPUSCULAR HEMOGLOBIN 28 PG (26.0-33.0); MEAN CORPUSCULAR HGB CONC 34 g/dl (31.0-36.0); MEAN CORPUSCULAR VOLUME 83 fL (80-96); MONOCYTES # (AUTO) 0.7 K/uL (0.1-1.30); MONOCYTES % (AUTO) 8.2 % (2.0-12.0); NEUTROPHILS # (AUTO) 5.6 K/uL (1.8-8.9); NEUTROPHILS % (AUTO) 66.3 % (43.0-81.0); PLATELET COUNT (AUTO) 142 K/uL (150-450); RED BLOOD CELL COUNT(AUTO) 4.47 MIL/uL (4.5-6.0); RED CELL DISTRIBUTION WIDTH 15.3 % (11.5-15.0); WHITE BLOOD COUNT (AUTO) 8.4 K/uL (4.3-11.0)
[2023-09-25] MEDS: CEFTRIAXONE 1GM BAG (ER ONLY) 1 GM/50 ML PIGGYBACK IV ONE (03:52)
[2023-09-25 04:02] LABS: CREATININE 2.1 mg/dL (0.6-1.3); POTASSIUM 3.5 mmol/L (3.5-5.1)
[2023-09-25] MEDS ORDERED: ONDANSETRON HCL/PF 4 MG/2 ML VIAL IVP PRN (04:30)
[2023-09-25] MEDS ORDERED: BISACODYL SUPP (10 MG) 10 MG/SUPP.RECT SUPP.RECT RC PRN (04:30)
[2023-09-25] MEDS ORDERED: ACETAMINOPHEN 160 MG/5 ML GT PRN (04:30)
[2023-09-25] MEDS ORDERED: IV NS 0.9% 1,000 ML IV PRN (04:30)
[2023-09-25] MEDS ORDERED: Z GUARD REMEDY 4 OZ OINT TP PRN (04:30)
[2023-09-25] MEDS ORDERED: ENOXAPARIN SODIUM 40 MG/0.4 ML DISP.SYRIN SQ SCH (04:30)
[2023-09-25] MEDS ORDERED: CLONIDINE HCL 0.1 MG TABLET PO PRN (04:30)
[2023-09-25] MEDS: AZITHROMYCIN 500 MG in IV D5W 250 ML IV ONE (04:35)
[2023-09-25] MEDS ORDERED: AZITHROMYCIN 500 MG VIAL ONE (04:38)
[2023-09-25] MEDS: MEROPENEM 1 G in IV NS 0.9% 100 ML IV ONE (05:47)
[2023-09-25] MEDS: VANCOMYCIN HCL 1.25 GM in IV D5W 250 ML IV ONE (06:00)
[2023-09-25] MEDS ORDERED: ACET-2605 PO (08:51)
[2023-09-25] MEDS ORDERED: PROP20TA7 PO (08:51)
[2023-09-25] MEDS ORDERED: CLON0.1T PO (08:51)
[2023-09-25] MEDS ORDERED: DOCU100C36 PO (08:51)
[2023-09-25] MEDS ORDERED: RISP0.5T5 PO (08:51)
[2023-09-25] MEDS ORDERED: MINO2.5T2 PO (08:51)
[2023-09-25] MEDS ORDERED: ACET-868 PO (08:51)
[2023-09-25] MEDS ORDERED: HEPA50008 SQ (08:51)
[2023-09-25] MEDS ORDERED: FLUT16SP16 BNOSTRILS (08:51)
[2023-09-25] MEDS ORDERED: ATOR40TA PO (08:51)
[2023-09-25] MEDS ORDERED: CHLO473M2 MM (08:51)
[2023-09-25] MEDS: hydrALAZINE HCL 10 MG TABLET PO SCH (10:10)
[2023-09-25] MEDS: AMLODIPINE BESYLATE 10 MG TABLET GT SCH (10:10)
[2023-09-25] MEDS ORDERED: AMLODIPINE BESYLATE 10 MG TABLET ONE (10:46)
[2023-09-25] MEDS: MINOXIDIL (2.5MG) 2.5 MG TABLET GT SCH (11:00)
[2023-09-25] MEDS: PROPRANOLOL HCL 40 MG TABLET GT SCH (11:00)
[2023-09-25] MEDS ORDERED: ACETAMINOPHEN 325 MG TABLET ONE (12:19)
[2023-09-25] MEDS: ACETAMINOPHEN 325 MG TABLET PO PRN (12:30)
[2023-09-25] MEDS ORDERED: LEVETIRACETAM SOL (5 ML) 100 MG/ML UDC ONE (12:52)
[2023-09-25] MEDS: LEVETIRACETAM SOL (5 ML) 100 MG/ML UDC GT SCH (12:57)
[2023-09-25] MEDS: MEROPENEM 1 G in IV NS 0.9% 100 ML IV SCH (13:49)
[2023-09-25] MEDS: RITONAVIR 100 MG CAPSULE PO SCH (13:49)
[2023-09-25] MEDS: ENOXAPARIN SODIUM 40 MG/0.4 ML DISP.SYRIN SQ SCH (13:49)
[2023-09-25] MEDS: risperiDONE 0.25 MG TABLET PO SCH (16:04)
[2023-09-25] MEDS: DOCUSATE SODIUM 100 MG CAPSULE PO SCH (16:05)
[2023-09-25] MEDS: FLUTICASONE PROPIONATE 16 GM BOTTLE NS SCH (16:06)
[2023-09-25] MEDS: VANCOMYCIN 750 MG in IV D5W 250 ML IV SCH (17:11)
[2023-09-25] MEDS: CHLORHEXIDINE GLUCONATE 15 ML UDC MM SCH (21:14)
[2023-09-25] MEDS: HEPARIN SODIUM, PORCINE 5000 UNITS/1 ML VIAL SQ SCH (21:20)
[2023-09-25] MEDS: ATORVASTATIN 40 MG TABLET PO SCH (21:46)
[2023-09-26] VITALS (10 sets, daily range): BP systolic 99–110; BP diastolic 58–68; TEMP 98.6–100.6; O2SAT 97–99
[2023-09-26 07:36] LABS: CALCIUM, SERUM 7.8 mg/dL (8.5-10.1); CREATININE 3.2 mg/dL (0.6-1.3); MAGNESIUM 1.8 mg/dL (1.8-2.4); PHOSPHORUS 3.4 mg/dL (2.5-4.9)
[2023-09-26 07:38] LABS: BASOPHILS % (AUTO) 0.3 % (0.0-2.0); EOSINOPHILS # (AUTO) 0.1 K/uL (0.0-0.7); HEMATOCRIT 34 % (39-51); LYMPHOCYTES # (AUTO) 0.7 K/uL (0.8-4.8); LYMPHOCYTES % (AUTO) 13.9 % (20.0-44.0); MEAN CORPUSCULAR HEMOGLOBIN 28 PG (26.0-33.0); MEAN CORPUSCULAR HGB CONC 35 g/dl (31.0-36.0); MEAN CORPUSCULAR VOLUME 82 fL (80-96); MONOCYTES # (AUTO) 0.5 K/uL (0.1-1.30); MONOCYTES % (AUTO) 10.1 % (2.0-12.0); NEUTROPHILS % (AUTO) 73.7 % (43.0-81.0); PLATELET COUNT (AUTO) 113 K/uL (150-450); RED BLOOD CELL COUNT(AUTO) 4.21 MIL/uL (4.5-6.0); RED CELL DISTRIBUTION WIDTH 15.4 % (11.5-15.0); WHITE BLOOD COUNT (AUTO) 5.4 K/uL (4.3-11.0)
[2023-09-26 08:25] LABS: THYROID STIMULATING HORMONE 0.658 uIU/mL (0.358-3.74)
[2023-09-26 08:40] LABS: THYROID STIMULATING HORMONE 0.712 uIU/mL (0.358-3.74)
[2023-09-26] MEDS: ASPIRIN 81 MG TAB.CHEW PO SCH (09:07)
[2023-09-26] MEDS: AMLODIPINE BESYLATE 10 MG TABLET PO SCH (09:07)
[2023-09-26] MEDS: LEVETIRACETAM (250 MG) 250 MG TABLET PO SCH (09:07)
[2023-09-26] MEDS: PROPRANOLOL HCL 40 MG TABLET PO SCH (09:08)
[2023-09-26 13:18] LABS: EOSINOPHILS % (MANUAL) 2 % (0-4); LYMPHOCYTES % (MANUAL) 14 % (16-48); MONOCYTES % (MANUAL) 11 % (0-11.0); NEUTROPHILS % (MANUAL) 73 (42-76); PLATELET ESTIMATE DECREASED
[2023-09-26] MEDS: POTASSIUM CHLORIDE 20 MEQ TAB.PRT.SR PO ONE (21:17)
[2023-09-26] MEDS: MEROPENEM 1 G in IV NS 0.9% 100 ML IV SCH (21:34)
[2023-09-27] VITALS (12 sets, daily range): BP systolic 100–120; BP diastolic 63–76; TEMP 98.6–101.2; O2SAT 94–100
[2023-09-27 07:48] LABS: CREATININE 3.2 mg/dL (0.6-1.3); POTASSIUM 3.4 mmol/L (3.5-5.1)
[2023-09-27] MEDS: VANCOMYCIN 1 GM in IV D5W 250ml IV SCH (08:36)
[2023-09-27 14:52] LABS: HIV-1 p24 ANTIGEN NON REACTIVE (NONREACTIVE); HIV-1/2 ANTIBODY NON REACTIVE (NONREACTIVE)
[2023-09-28] VITALS (13 sets, daily range): BP systolic 106–144; BP diastolic 62–86; TEMP 99–101; O2SAT 94–100
[2023-09-28 07:53] LABS: CALCIUM, SERUM 7.1 mg/dL (8.5-10.1); CREATININE 2.5 mg/dL (0.6-1.3); POTASSIUM 3.6 mmol/L (3.5-5.1)
[2023-09-29] VITALS (12 sets, daily range): BP systolic 111–139; BP diastolic 73–90; TEMP 98.3–99.7; O2SAT 95–99
[2023-09-29 07:46] LABS: CALCIUM, SERUM 7.3 mg/dL (8.5-10.1); POTASSIUM 3.5 mmol/L (3.5-5.1)
[2023-09-30] VITALS (12 sets, daily range): BP systolic 118–137; BP diastolic 73–91; TEMP 98.1–99.5; O2SAT 96–100
[2023-09-30 06:33] LABS: BASOPHILS % (AUTO) 0.3 % (0.0-2.0); EOSINOPHILS # (AUTO) 0.7 K/uL (0.0-0.7); EOSINOPHILS % (AUTO) 9.8 % (0.0-6.0); HEMATOCRIT 34 % (39-51); HEMOGLOBIN 11.6 g/dL (13.5-17.5); LYMPHOCYTES # (AUTO) 2.4 K/uL (0.8-4.8); LYMPHOCYTES % (AUTO) 33.9 % (20.0-44.0); MEAN CORPUSCULAR HEMOGLOBIN 28 PG (26.0-33.0); MEAN CORPUSCULAR HGB CONC 34 g/dl (31.0-36.0); MEAN CORPUSCULAR VOLUME 82 fL (80-96); MONOCYTES # (AUTO) 0.6 K/uL (0.1-1.30); MONOCYTES % (AUTO) 8.4 % (2.0-12.0); NEUTROPHILS # (AUTO) 3.4 K/uL (1.8-8.9); NEUTROPHILS % (AUTO) 47.6 % (43.0-81.0); PLATELET COUNT (AUTO) 103 K/uL (150-450); RED BLOOD CELL COUNT(AUTO) 4.18 MIL/uL (4.5-6.0); RED CELL DISTRIBUTION WIDTH 15.7 % (11.5-15.0); WHITE BLOOD COUNT (AUTO) 7.2 K/uL (4.3-11.0)
[2023-09-30 06:59] LABS: CALCIUM, SERUM 7.7 mg/dL (8.5-10.1); CREATININE 1.8 mg/dL (0.6-1.3); MAGNESIUM 2.2 mg/dL (1.8-2.4); PHOSPHORUS 2.6 mg/dL (2.5-4.9); POTASSIUM 3.8 mmol/L (3.5-5.1)
[2023-09-30 08:28] LABS: APPEARANCE,URINE CLEAR (CLEAR); BILIRUBIN,URINE NEGATIVE (NEGATIVE); BLOOD, URINE 2+ Ery/uL (NEGATIVE); COLOR,URINE YELLOW (YELLOW); KETONES,URINE NEGATIVE (NEGATIVE); LEUKOCYTE ESTERASE ,URINE NEGATIVE (NEGATIVE); NITRITE, URINE NEGATIVE (NEGATIVE); PH,URINE 6.5 (5.0-8.0); PROTEIN,URINE 2+ mg/dl (NEGATIVE); UGLUCOSE NEGATIVE (NEGATIVE); UROBILINOGEN,URINE 0.2 EU/dL (0.2)
[2023-09-30 08:58] LABS: ADD URINE CULTURE NO; BACTERIA,URINE 1+ /HPF (None Seen); SQUAMOUS EPITHELIAL CELL,UR None Seen /HPF (None Seen); WBC,URINE 0-2 /HPF (0-3)
[2023-09-30 08:59] LABS: COARSE GRANULAR CASTS,URINE Rare /LPF (None Seen); MUCUS,URINE Rare /LPF (None Seen)
[2023-09-30 12:11] LABS: EOSINOPHILS % (MANUAL) 8 % (0-4); LYMPHOCYTES % (MANUAL) 30 % (16-48); MONOCYTES % (MANUAL) 10 % (0-11.0); NEUTROPHILS % (MANUAL) 52 (42-76); PLATELET ESTIMATE DECREASED
[2023-09-30] MEDS: VANCOMYCIN 500 MG in IV D5W 100ml IV ONE (15:30)
[2023-10-01] VITALS (13 sets, daily range): BP systolic 111–138; BP diastolic 74–96; TEMP 97.9–99.7; O2SAT 94–100
[2023-10-01] MEDS: VANCOMYCIN HCL 1.25 GM in IV D5W 250 ML IV SCH (05:21)
[2023-10-01 09:29] LABS: CALCIUM, SERUM 7.6 mg/dL (8.5-10.1); CREATININE 1.7 mg/dL (0.6-1.3); POTASSIUM 3.9 mmol/L (3.5-5.1)
[2023-10-02] VITALS (12 sets, daily range): BP systolic 114–124; BP diastolic 77–87; TEMP 97.7–99.5; O2SAT 97–100
[2023-10-02 07:55] LABS: CALCIUM, SERUM 8.4 mg/dL (8.5-10.1); CREATININE 1.5 mg/dL (0.6-1.3); POTASSIUM 4.1 mmol/L (3.5-5.1)
[2023-10-03] VITALS (9 sets, daily range): BP systolic 104–134; BP diastolic 72–87; TEMP 98.2–98.9; O2SAT 95–100
[2023-10-03 07:20] LABS: CREATININE 1.6 mg/dL (0.6-1.3); POTASSIUM 3.8 mmol/L (3.5-5.1)
[2023-10-03] MEDS ORDERED: VANC1.2526 IV (12:43)
[2023-10-03] MEDS ORDERED: ASPI-1169 PO (12:43)
[2023-10-03] MEDS ORDERED: MERO1PIG IV (12:43)
[2023-10-03] MEDS ORDERED: MEROPENEM 1 G in IV NS 0.9% 100 ML IV SCH (20:00)
== END 2023-10-03 19:00 | DRG 720 ==
LOC: ER 19:00 → TRANSITION 09-25 04:40 → MEDSG1 09-25 11:56 → TELE1 09-26 07:46
PROVIDERS: ADMIT Nurse Practitioner Family; ATTEND Internal Medicine
DX: A41.89 Other specified sepsis (principal); J12.82 Pneumonia due to coronavirus disease 2019; I31.39 Other pericardial effusion (noninflammatory); I21.A1 Myocardial infarction type 2; I12.0 Hypertensive chronic kidney disease with stage 5 chronic kidney disease or end stage renal disease; J15.9 Unspecified bacterial pneumonia; G93.1 Anoxic brain damage, not elsewhere classified; U07.1 COVID-19; N17.9 Acute kidney failure, unspecified; J96.10 Chronic respiratory failure, unspecified whether with hypoxia or hypercapnia; N18.6 End stage renal disease; Z93.0 Tracheostomy status; I69.351 Hemiplegia and hemiparesis following cerebral infarction affecting right dominant side; Z86.16 Personal history of COVID-19; Z87.820 Personal history of traumatic brain injury; Z98.890 Other specified postprocedural states; Z79.01 Long term (current) use of anticoagulants; Z79.51 Long term (current) use of inhaled steroids; J39.8 Other specified diseases of upper respiratory tract; Z99.2 Dependence on renal dialysis; Z79.899 Other long term (current) drug therapy; D64.9 Anemia, unspecified; E78.5 Hyperlipidemia, unspecified; J98.11 Atelectasis; Y95 Nosocomial condition
CPT/HCPCS: 31720; 36415; 71045-TC; 71250-TC; 80048-TC; 80061-TC; 80202-TC; 81001; 83735-TC; 84100-TC; 84439-TC; 84443-TC; 84484-TC; 85025-TC; 85378-TC; 86140-TC; 87040-TC; 87081-TC; 87086-TC; 87806; 93307-TC; 93970-TC; 94640-TC; 94760-TC; 94761-TC; 94762-TC; 94799-TC; A4223; A4623; A7526; G0378; J0456; J0696; J1644; J1650; J1953; J2185; J2405; J3370; J3371; J7030; J7040; J7060